=== PATIENT | female | born 1985 | race Caucasian/White ===

== ENCOUNTER 2021-11-29 09:42 | Observation (INO) | payer OTHER ==
[2021-11-29 10:44] VITALS: BP 138/79; PULSE 80
== END 2021-11-29 11:20 | disposition home or self-care (01) ==
LOC: WHC 09:42 → OB 10:16
PROVIDERS: ADMIT Obstetrics & Gynecology; ATTEND Obstetrics & Gynecology
DX: O24.419 Gestational diabetes mellitus in pregnancy, unspecified control (principal); Z3A.32 32 weeks gestation of pregnancy; R82.79 Other abnormal findings on microbiological examination of urine
CPT/HCPCS: 59025; 59426; 81002; 87086; G0378

== ENCOUNTER 2021-12-07 15:03 | Observation (INO) | payer OTHER ==
[2021-12-07 16:32] VITALS: BP 126/59; PULSE 64
== END 2021-12-07 17:20 | disposition home or self-care (01) ==
LOC: WHC 15:03 → OB 15:50
PROVIDERS: ADMIT Obstetrics & Gynecology; ATTEND Obstetrics & Gynecology
DX: O24.419 Gestational diabetes mellitus in pregnancy, unspecified control (principal); Z3A.33 33 weeks gestation of pregnancy
CPT/HCPCS: 59025; 59426; G0378; 81002

== ENCOUNTER 2021-12-14 15:21 | Observation (INO) | payer OTHER ==
[2021-12-14 16:03] VITALS: BP 126/66; PULSE 78; O2SAT 98
== END 2021-12-14 17:15 | disposition home or self-care (01) ==
LOC: OB 15:21
PROVIDERS: ADMIT Obstetrics & Gynecology; ATTEND Obstetrics & Gynecology
DX: O24.419 Gestational diabetes mellitus in pregnancy, unspecified control (principal); Z3A.34 34 weeks gestation of pregnancy
CPT/HCPCS: 59025; G0378

== ENCOUNTER 2021-12-21 15:22 | Observation (INO) | payer OTHER ==
--- NOTE | 2021-12-21 16:28 | XRAY ---
Indication: Gestational diabetes. OB biophysical profile study performed. Comparison: None There is a single intrauterine in cephalic presentation with heart rate 148 BPM. Four-quadrant MONIKA is 8.4 cm, largest pocket 3.3 cm. 2 points given for breathing and amniotic fluid volume. 0 points for movement and tone. Impression: Total biophysical profile score is 4 out of 8.
[2021-12-21 18:45] VITALS: BP 109/58; PULSE 85; O2SAT 99
== END 2021-12-21 18:05 | disposition home or self-care (01) ==
LOC: MED SURG 15:35
PROVIDERS: ADMIT Obstetrics & Gynecology; ATTEND Obstetrics & Gynecology
DX: O24.419 Gestational diabetes mellitus in pregnancy, unspecified control (principal); Z3A.35 35 weeks gestation of pregnancy
CPT/HCPCS: 76818

== ENCOUNTER 2021-12-25 07:00 | Observation (INO) | payer OTHER ==
--- NOTE | 2021-12-25 12:16 | XRAY ---
Indication: Gestational diabetes. Ultrasound biophysical profile study performed. Comparison: December 21, 2021. Again single viable intrauterine with heart rate 155 BPM. Four-quadrant MONIKA is 13.8 cm, largest pocket 6.2 cm. 2 points given for breathing, movements, tone, and amniotic fluid volume. Impression: Total biophysical profile score is 8 out of 8. This was previously 4 out of 8.
[2021-12-25 12:21] VITALS: BP 115/59; PULSE 71
== END 2021-12-25 12:52 | disposition home or self-care (01) ==
LOC: EDSTATUS 11:02 → MED SURG 11:03
PROVIDERS: ADMIT Obstetrics & Gynecology; ATTEND Obstetrics & Gynecology
DX: O24.419 Gestational diabetes mellitus in pregnancy, unspecified control (principal); Z3A.36 36 weeks gestation of pregnancy
CPT/HCPCS: 76818

== ENCOUNTER 2021-12-28 09:46 | Observation (INO) | payer OTHER ==
[2013-08-09 07:27] VITALS: BP 125/98
--- NOTE | 2022-01-15 12:26 | XRAY ---
Indication: Gestational diabetes. Comparison: January 12, 2022. Ultrasound biophysical profile study performed. Again single intrauterine with heart rate 159 bpm. Four-quadrant MONIKA is 10.4 cm, largest pocket 5 cm. 2 points given for breathing, movements, tone, and amniotic fluid volume. Impression: Total biophysical profile score remains 8 out of 8.
[2022-01-15 14:05] LABS: INFLUENZA A NEGATIVE (NEGATIVE); INFLUENZA B NEGATIVE (NEGATIVE); RESPIRATORY SYNCTIAL VIRUS NEGATIVE (Negative); SARS-CoV-2 Xpert Express NEGATIVE (NEGATIVE)
[2022-01-15 14:16] LABS: ABO TYPING O; Antibody Screen NEGATIVE (NEGATIVE); RH TYPING POSITIVE
[2022-01-15 14:26] VITALS: BP 141/76; PULSE 84
== END 2022-01-15 13:30 | disposition home or self-care (01) ==
LOC: EDSTATUS 11:56 → RAD 01-15 11:11 → OB 01-15 11:11
PROVIDERS: ADMIT Obstetrics & Gynecology; ATTEND Obstetrics & Gynecology
DX: O24.419 Gestational diabetes mellitus in pregnancy, unspecified control (principal); Z3A.38 38 weeks gestation of pregnancy
CPT/HCPCS: 0241U; 36415; 59025; 76818; 86850; 86900; 86901; G0378

== ENCOUNTER 2022-01-03 09:31 | Observation (INO) | payer OTHER ==
[2022-01-03 10:46] VITALS: BP 124/64; PULSE 69; O2SAT 96
== END 2022-01-03 11:00 | disposition home or self-care (01) ==
LOC: OB 09:31
PROVIDERS: ADMIT Obstetrics & Gynecology; ATTEND Obstetrics & Gynecology
DX: O24.419 Gestational diabetes mellitus in pregnancy, unspecified control (principal); Z3A.37 37 weeks gestation of pregnancy
CPT/HCPCS: 59025; G0378

== ENCOUNTER 2022-01-08 12:56 | Observation (INO) | payer OTHER ==
--- NOTE | 2022-01-08 13:48 | XRAY ---
Indication: Gestational diabetes. Comparison: January 01, 2022. Ultrasound biophysical profile study performed. Single intrauterine with heart rate 152 BPM. Four-quadrant MONIKA is 15.9 cm, largest pocket 7.8 cm. 2 points given for breathing, movements, tone, and amniotic fluid volume. Impression: Total biophysical profile score remains 8 out of 8.
[2022-01-08 14:17] VITALS: BP 118/63; PULSE 67
== END 2022-01-08 14:10 | disposition home or self-care (01) ==
LOC: UNDOADMOB 12:56 → MED SURG 12:56 → UNDODISOB 14:10
PROVIDERS: ADMIT Obstetrics & Gynecology; ATTEND Obstetrics & Gynecology
DX: O24.419 Gestational diabetes mellitus in pregnancy, unspecified control (principal); Z3A.37 37 weeks gestation of pregnancy
CPT/HCPCS: 59025; 76818; G0378

== ENCOUNTER 2022-01-12 11:38 | Observation (INO) | payer OTHER ==
--- NOTE | 2022-01-12 12:29 | XRAY ---
Indication: Gestational diabetes. Comparison: January 08, 2022. Ultrasound biophysical profile study performed. Again single intrauterine with heart rate 157 BPM. Four-quadrant MONIKA is 17.6 cm, largest pocket 5.6 cm. 2 points given for breathing, movements, tone, and amniotic fluid volume. Impression: Total biophysical profile score remains 8 of 8.
[2022-01-12 12:32] VITALS: BP 143/75; PULSE 68
== END 2022-01-12 13:05 | disposition home or self-care (01) ==
LOC: MED SURG 11:38 → UNDOADMOB 11:38 → UNDODISOB 13:05
PROVIDERS: ADMIT Obstetrics & Gynecology; ATTEND Obstetrics & Gynecology
DX: O24.419 Gestational diabetes mellitus in pregnancy, unspecified control (principal); Z3A.38 38 weeks gestation of pregnancy
CPT/HCPCS: 59025; 76818; G0378

== ENCOUNTER 2022-01-15 10:32 | Inpatient (IN) | payer OTHER ==
[2022-01-16] MEDS ORDERED: TYLENOL EXTRA STRENGTH 500 MG PO PRN (00:28)
[2022-01-16] MEDS ORDERED: STADOL 2 MG IV PRN (00:28)
[2022-01-16] MEDS ORDERED: XYLOCAINE 1% HCL 20 ML MDV IJ PRN (00:28)
[2022-01-16] MEDS ORDERED: Zofran 4 MG/2 ML VIAL IV PRN ×2 (00:28→20:07)
[2022-01-16] MEDS ORDERED: PITOCIN 30 UNITS/ LR 500 ML 30 UNITS/500 ML PLAST..BAG IV SCH (00:30)
[2022-01-16] MEDS ORDERED: OMNIPEN 2 GM*** 2 G in Sodium Chloride 100ML MINI-BAG PLUS 100 ML IV ONE (06:00)
[2022-01-16 06:32] LABS: Absolute Neutrophil Ct (ANC) 12.16 (1.4-6.9); Basophil (Absolute #) 0.02 (0-0.4); Eosinophil % 1.2 % (0.00-5.0); Hematocrit 38.7 % (35-47); Hemoglobin 12.7 gm/dl (12.0-16.0); Lymphocyte (Absolute #) 3.45 (1.0-4.6); Lymphocytes % 20.6 % (24.0-44.0); Mean Cell Volume 85.6 fl (78-100); Mean Corpuscular Hemoglobin 28.1 pg (26-32); Mean Corpuscular Hgb Concent. 32.8 g/dl (32-36); Mean Platelet Volume 11.1 fl (7.5-11.0); Monocyte (Absolute #) 0.92 (0.0-1.3); Monocytes % 5.5 % (0.0-12.0); Neutrophil % 72.6 % (36.0-66.0); Platelet Count 303 K/mm3 (150-450); Red Blood Count 4.52 M/mm3 (4.1-5.4); Red Cell Distribution Width 13.1 % (11.5-14.0); White Blood Count 16.8 K/mm3 (4.0-10.5)
[2022-01-16 08:06] LABS: Amphetamine,Urine NEGATIVE (NEGATIVE); Barbiturate,Urine NEGATIVE (NEGATIVE); Benzodiazepine,Urine NEGATIVE (NEGATIVE); Cocaine,Urine NEGATIVE (NEGATIVE); Methadone,Urine NEGATIVE (NEGATIVE); Opiate,Urine NEGATIVE (NEGATIVE); PCP,Urine NEGATIVE (NEGATIVE); THC,Urine NEGATIVE (NEGATIVE)
[2022-01-16] MEDS: Lactated Ringers 1,000 ML IV SCH ×2 (19:27→22:21)
[2022-01-16] MEDS ORDERED: Pepcid 20 MG VIAL IV SCH (20:00)
[2022-01-16] MEDS ORDERED: CEFAZOLIN 2 GM-D5W BAG** 2 GM/50 ML ML IV SCH (20:00)
[2022-01-16] MEDS ORDERED: SOD CITRATE-CITRIC ACID SOLN PO SCH (20:00)
[2022-01-16] MEDS ORDERED: Reglan 10 MG/2 ML IV SCH (20:00)
[2022-01-16] MEDS ORDERED: MORPHINE SULFATE 2 MG INJ IV PRN (20:07)
[2022-01-16] MEDS ORDERED: HOLD NARCOTIC ANALGESICS AND SEDATIVES X24 HR MC PRN (20:07)
[2022-01-16] MEDS ORDERED: CLARITIN 10 MG PO PRN (20:07)
[2022-01-16] MEDS ORDERED: Nubain 10 MG/ML IV PRN (20:07)
[2022-01-16] MEDS ORDERED: BENADRYL 50 MG/ML IV PRN (20:07)
[2022-01-16] MEDS ORDERED: DEMEROL 50 MG IV PRN (20:07)
[2022-01-16] MEDS ORDERED: Narcan 0.4 MG/ML IV PRN (20:07)
[2022-01-16] MEDS ORDERED: CEFAZOLIN 2 GM-D5W BAG** 2 GM/50 ML ML IV ONE (20:19)
[2022-01-16] MEDS ORDERED: Astramorph-Pf 5 MG/10 ML ONE (20:30)
[2022-01-16] MEDS ORDERED: DIPRIVAN 200 MG/20 ML IV ONE (20:48)
[2022-01-16] MEDS ORDERED: SUBLIMAZE 250 MCG/5 ML ONE (20:48)
[2022-01-16] MEDS ORDERED: Quelicin Fliptop 200 MG/10 ML ONE (20:48)
[2022-01-16 20:49] LABS: INR 0.9 (0.8-3.0); PROTIME 10.6 SECONDS (9.4-12.5)
[2022-01-16 20:51] LABS: PTT 29.1 SECONDS (25.1-36.5)
[2022-01-16] MEDS ORDERED: KEFZOL 1 GM ONE (20:56)
[2022-01-16] MEDS ORDERED: Pitocin 10 UNITS/ML ONE ×2 (20:57→21:10)
[2022-01-16] MEDS ORDERED: Lactated Ringers 1,000 ML IV ONE (21:10)
[2022-01-16] MEDS ORDERED: Marcaine 0.5%/Epinephrine 10 ML ONE (21:22)
[2022-01-16] MEDS ORDERED: BRIDION 200MG/2ML IV ONE (21:27)
[2022-01-16] MEDS ORDERED: Hydromorphone 1 mg/ml Injection ONE (21:59)
[2022-01-16] MEDS ORDERED: TORAdol 30 mg Injection ONE (22:00)
[2022-01-16] MEDS: OMNIPEN 1 GM*** 1 GM in Sodium Chloride 100ML MINI-BAG PLUS 100 ML IV SCH ×2 (22:22→22:23)
[2022-01-16] MEDS: Dextrose 5%-Lr IV Solution 1000 ML 1,000 ML IV SCH (22:44)
[2022-01-16] MEDS: PERCOCET TABLET 5/325MG PO PRN (23:14)
[2022-01-16] MEDS ORDERED: Mylicon 80MG PO PRN (23:55)
[2022-01-16] MEDS ORDERED: LANSINOH 40 GM TOP PRN (23:55)
[2022-01-16] MEDS ORDERED: Dulcolax 10 MG SUPP PR PRN (23:55)
[2022-01-16] MEDS ORDERED: CORTISONE 1% CREAM TP PRN (23:55)
[2022-01-16] MEDS ORDERED: Anucort-HC SUPPOSITORY PR PRN (23:55)
[2022-01-17] MEDS: MOTRIN 400 MG PO PRN ×2 (02:24→22:08)
[2022-01-17] MEDS: PERCOCET TABLET 5/325MG PO PRN (04:03)
[2022-01-17] MEDS: CEFAZOLIN 2 GM-D5W BAG** 2 GM/50 ML ML IV SCH ×2 (05:38→13:06)
[2022-01-17] MEDS: Dextrose 5%-Lr IV Solution 1000 ML 1,000 ML IV SCH ×3 (05:45→20:17)
[2022-01-17 06:17] LABS: Absolute Neutrophil Ct (ANC) 16.66 (1.4-6.9); Basophil (Absolute #) 0.02 (0-0.4); Eosinophil % 0.4 % (0.00-5.0); Eosinophil (Absolute #) 0.09 (0-0.5); Hematocrit 32.1 % (35-47); Hemoglobin 10.5 gm/dl (12.0-16.0); Lymphocyte (Absolute #) 3.05 (1.0-4.6); Lymphocytes % 14.5 % (24.0-44.0); Mean Cell Volume 87.7 fl (78-100); Mean Corpuscular Hemoglobin 28.7 pg (26-32); Mean Corpuscular Hgb Concent. 32.7 g/dl (32-36); Mean Platelet Volume 10.9 fl (7.5-11.0); Monocyte (Absolute #) 1.27 (0.0-1.3); Platelet Count 249 K/mm3 (150-450); Red Blood Count 3.66 M/mm3 (4.1-5.4); Red Cell Distribution Width 13.2 % (11.5-14.0); White Blood Count 21.1 K/mm3 (4.0-10.5)
[2022-01-17] MEDS ORDERED: PHARMACY DOSING REQUIRED: DILAUDID PCA IV ONE (07:00)
--- NOTE | 2022-01-17 07:54 | PCM.NOTE ---
Date and Time: 01/17/22 0751 Subjective Assessment: pod 1 sp csection pt resting in bed and doing well. tolerating diet. vss afebrile abd;soft dressing intact with minimal soiling uterus; firm lochia; mild hgb; 10 a/p sp csection pod 1 doing well anticipate dc tomorrow OBJECTIVE DATA Vital Signs: Vital Signs - 24 hr Temp Pulse Resp BP BP Pulse Ox 01/17/22 02:00 74 18 117/60 96 01/17/22 01:00 80 120/61 96 01/17/22 00:00 80 18 120/61 96 01/16/22 23:45 86 18 140/77 96 01/16/22 23:30 80 18 149/81 98 01/16/22 23:15 73 18 134/76 97 01/16/22 23:00 77 18 143/71 95 01/16/22 22:45 97.7 F 77 18 154/76 96 01/16/22 20:12 97.6 F 80 20 182/87 98 01/16/22 19:00 97.6 F 79 20 138/84 01/16/22 18:00 97.6 F 75 20 130/73 130/75 01/16/22 17:00 97.9 F 80 20 131/79 01/16/22 16:33 97.9 F 20 01/16/22 16:00 97.9 F 98 H 20 124/80 01/16/22 15:21 97.9 F 82 20 143/79 01/16/22 15:00 97.9 F 75 20 136/82 01/16/22 14:45 97.9 F 82 20 143/79 01/16/22 14:30 97.9 F 82 20 143/79 01/16/22 14:00 97.9 F 74 20 137/76 126/75 01/16/22 13:00 97.8 F 80 20 137/76 01/16/22 12:00 97.8 F 81 20 145/74 01/16/22 11:00 97.8 F 80 20 140/88 01/16/22 10:00 97.9 F 82 20 143/79 138/75 01/16/22 09:00 97.8 F 78 20 140/84 01/16/22 08:00 97.8 F 75 20 148/89 94 L Pain Assessment - Last Documented Pain Intensity [Bilateral 3 Lower Anterior] Pain Intensity 2 Pain Scale Used 0-10 Pain Scale Intake and Output: Intake & Output 01/14/22 01/15/22 01/16/22 01/17/22 11:59 11:59 11:59 11:59 Intake Total 900 Output Total 400 Balance 500 Weight 120.656 kg 120.656 kg Lab Results: Lab Results-Last 24 Hours 01/16/22 01/16/22 01/17/22 Range/Units 06:17 20:18 05:20 WBC 21.1 H (4.0-10.5) K/mm3 RBC 3.66 L (4.1-5.4) M/mm3 Hgb 10.5 L (12.0-16.0) gm/dl Hct 32.1 L (35-47) % MCV 87.7 (78-100) fl MCH 28.7 (26-32) pg MCHC 32.7 (32-36) g/dl RDW 13.2 (11.5-14.0) % Plt Count 249 (150-450) K/mm3 MPV 10.9 (7.5-11.0) fl Gran % 79.0 H (36.0-66.0) % Eos # (Auto) 0.09 (0-0.5) Absolute Lymphs (auto) 3.05 (1.0-4.6) Absolute Monos (auto) 1.27 (0.0-1.3) Lymphocytes % 14.5 L (24.0-44.0) % Monocytes % 6.0 (0.0-12.0) % Eosinophils % 0.4 (0.00-5.0) % Basophils % 0.1 (0.0-0.4) % Absolute Granulocytes 16.66 H (1.4-6.9) Basophils # 0.02 (0-0.4) PT 10.6 (9.4-12.5) SECONDS INR 0.90 (0.8-3.0) APTT 29.1 (25.1-36.5) SECONDS POC Glucometer (74 to 106) mg/dL Urine Opiates Level NEGATIVE (NEGATIVE) Ur Methadone NEGATIVE (NEGATIVE) Urine Barbiturates NEGATIVE (NEGATIVE) Ur Phencyclidine (PCP) NEGATIVE (NEGATIVE) Urine Amphetamine NEGATIVE (NEGATIVE) U Benzodiazepine Level NEGATIVE (NEGATIVE) Urine Cocaine NEGATIVE (NEGATIVE) Urine Marijuana (THC) NEGATIVE (NEGATIVE) 01/17/22 Range/Units 06:19 WBC (4.0-10.5) K/mm3 RBC (4.1-5.4) M/mm3 Hgb (12.0-16.0) gm/dl Hct (35-47) % MCV (78-100) fl MCH (26-32) pg MCHC (32-36) g/dl RDW (11.5-14.0) % Plt Count (150-450) K/mm3 MPV (7.5-11.0) fl Gran % (36.0-66.0) % Eos # (Auto) (0-0.5) Absolute Lymphs (auto) (1.0-4.6) Absolute Monos (auto) (0.0-1.3) Lymphocytes % (24.0-44.0) % Monocytes % (0.0-12.0) % Eosinophils % (0.00-5.0) % Basophils % (0.0-0.4) % Absolute Granulocytes (1.4-6.9) Basophils # (0-0.4) PT (9.4-12.5) SECONDS INR (0.8-3.0) APTT (25.1-36.5) SECONDS POC Glucometer 118 H (74 to 106) mg/dL Urine Opiates Level (NEGATIVE) Ur Methadone (NEGATIVE) Urine Barbiturates (NEGATIVE) Ur Phencyclidine (PCP) (NEGATIVE) Urine Amphetamine (NEGATIVE) U Benzodiazepine Level (NEGATIVE) Urine Cocaine (NEGATIVE) Urine Marijuana (THC) (NEGATIVE) Assessment/Plan (1) S/P primary low transverse Current Visit: Yes Status: Acute Code(s): Z98.891 - HISTORY OF UTERINE SCAR FROM PREVIOUS SURGERY (2) Non-reassuring electronic monitoring tracing Current Visit: Yes Status: Acute Code(s): O36.8390 - MATERN CARE FOR ABNLT FETL HRT RATE OR RHYM, UNSP TRI, UNSP
[2022-01-17] MEDS: DILAUDID 1 MG/1ML PCA IV PRN ×2 (08:44→18:59)
[2022-01-17] MEDS: Colace 100 MG PO SCH ×2 (09:12→22:08)
[2022-01-17] MEDS: FERREX 150 PO SCH (09:12)
[2022-01-17] MEDS ORDERED: ENOXAPARIN SODIUM SQ ONE (10:00)
--- NOTE | 2022-01-17 12:58 | OP ---
SURGERY DATE/TIME: 01/16/20222029 PREOPERATIVE DIAGNOSIS: Intrauterine at 39 weeks gestation with non-reassuring heart rate tracing with repetitive late deceleration. POSTOPERATIVE DIAGNOSIS: Intrauterine at 39 weeks gestation with non-reassuring heart rate tracing with repetitive late deceleration. PROCEDURE: Primary section, low flap transverse uterine incision, Pfannenstiel skin incision. SURGEON: Sukhi High D.O. APPLICATIONS ENGINEER MANUFACTURING: Sydney Shelton, air analysis engineering technician. ANESTHESIA: General. ESTIMATED BLOOD LOSS: 500 cc. COMPLICATIONS: None. INDICATIONS: The risks, benefits, indications and alternatives of the procedure were reviewed with the patient prior to procedure. The patient understood the risk of infection, bleeding, bowel injury, bladder injury, ureteral injury, pelvic infection and thromboembolic disorder associated with the surgery however desires to have this surgery as a possible means to alleviate her current medical condition. DESCRIPTION OF PROCEDURE AND FINDINGS: At this point the patient is taken to the operating room where her general anesthesia was found to adequate. She was then prepared and draped in normal sterile fashion in dorsal supine position with a leftward tilt. A Pfannenstiel skin incision is made with a scalpel and carried through to the underlying layer of the fascia with Bovie. The fascia was then incised in the midline and the incision extended laterally with Ellis scissors. The superior aspect of the fascial incision was then grasped Demarco clamps elevated and the underlying rectus muscles dissected off bluntly. Attention is then turned to the inferior aspect of this incision which in similar fashion was grasped, tented up with Demarco clamps and the rectus muscles dissected off bluntly. The rectus muscles were then at the midline and the peritoneum identified, tented up and entered sharply with Metzenbaum scissors. The peritoneal incision was then extended superiorly and inferiorly with good visualization of the bladder. The bladder blade was then inserted and the vesicouterine peritoneum identified, grasped with a pickup and entered sharply with Metzenbaum scissors. This incision was then extended laterally and the bladder flap created digitally. The bladder blade was then reinserted in the lower uterine segment incised in transverse fashion with a scalpel. The uterine incision was then extended laterally with bandage scissors. The bladder blade was then removed. The infant's head was delivered atraumatically. The nose and mouth were suctioned with bulb suction. The cord clamped and cut. The infant was then handed off to awaiting nurses. The placenta was then removed manually. The uterus exteriorized and cleared of all clots and debris. The uterine incision was repaired with 1-0 chromic in a running locked fashion. A second layer of the same suture was used to obtain excellent hemostasis. The uterus is then returned to the abdomen. The gutters were cleared of clots. The peritoneal muscles were closed in interrupted fashion using 2-0 chromic suture. The fascia was re-approximated with 0 Vicryl in running fashion. The subcutaneous layer was closed with 3-0 Vicryl suture and the skin was closed with absorbable hodan called INSORB. The patient tolerated the procedure well. Sponge, lap, needle and instrument counts were correct x2. The patient was then taken to the recovery room in stable condition. The patient delivered a live baby boy at 2100 hours. 's were 4/4/9. The weight of the baby was 7 pounds 3 ounces.
[2022-01-17] MEDS ORDERED: NORCO 5/325 MG PO PRN (22:00)
[2022-01-18] MEDS: Dextrose 5%-Lr IV Solution 1000 ML 1,000 ML IV SCH (00:29)
[2022-01-18] MEDS: MOTRIN 400 MG PO PRN ×2 (04:52→15:12)
[2022-01-18] MEDS: DILAUDID 1 MG/1ML PCA IV PRN (05:05)
[2022-01-18 05:19] VITALS: O2SAT 98
[2022-01-18 05:46] LABS: Hemoglobin 10.4 gm/dl (12.0-16.0); Mean Cell Volume 88.4 fl (78-100); Mean Corpuscular Hemoglobin 28.7 pg (26-32); Mean Corpuscular Hgb Concent. 32.5 g/dl (32-36); Mean Platelet Volume 10.7 fl (7.5-11.0); Platelet Count 267 K/mm3 (150-450); Red Blood Count 3.62 M/mm3 (4.1-5.4); Red Cell Distribution Width 13.4 % (11.5-14.0); White Blood Count 16.1 K/mm3 (4.0-10.5)
--- NOTE | 2022-01-18 08:03 | PCM.NOTE ---
Date and Time: 01/18/22800 Subjective Assessment: pod 2 pt resting in bed and doing well able to ambulate and tolerate diet. vss afebrile abd; soft incision with dressing intact with minimal soiling uterus; firm lochia; mild ext; no clubbing cyanosis or edema hgb; 10.4 a/p sp csection pod 2 dc home today fu office in 2 wks OBJECTIVE DATA Vital Signs: Vital Signs - 24 hr Temp Pulse Resp BP Pulse Ox 01/18/22 05:05 98 01/18/22 04:44 98 01/18/22 02:59 97 01/18/22 02:00 98.2 F 91 H 17 138/82 97 01/18/22 00:44 96 01/17/22 22:59 98 01/17/22 20:44 97 01/17/22 20:00 98.1 F 108 H 18 129/74 97 01/17/22 19:00 98 01/17/22 18:59 98 01/17/22 18:00 98 01/17/22 17:00 98 01/17/22 16:44 96 01/17/22 16:00 97 01/17/22 14:00 95 01/17/22 13:00 96 01/17/22 12:44 97 01/17/22 12:00 99 01/17/22 11:00 95 01/17/22 10:00 96 01/17/22 09:00 97.6 F 79 20 125/76 99 01/17/22 08:44 96 Pain Assessment - Last Documented Pain Intensity [Bilateral 4 Lower Anterior] Pain Intensity 3 Pain Scale Used 0-10 Pain Scale Intake and Output: Intake & Output 01/15/22 01/16/22 01/17/22 01/18/22 11:59 11:59 11:59 11:59 Intake Total 900 2079 Output Total 400 750 Balance 500 1329 Weight 120.656 kg 120.656 kg Lab Results: Lab Results-Last 24 Hours 01/18/22 Range/Units 05:20 WBC 16.1 H (4.0-10.5) K/mm3 RBC 3.62 L (4.1-5.4) M/mm3 Hgb 10.4 L (12.0-16.0) gm/dl Hct 32.0 L (35-47) % MCV 88.4 (78-100) fl MCH 28.7 (26-32) pg MCHC 32.5 (32-36) g/dl RDW 13.4 (11.5-14.0) % Plt Count 267 (150-450) K/mm3 MPV 10.7 (7.5-11.0) fl Assessment/Plan (1) S/P primary low transverse Current Visit: Yes Status: Acute Code(s): Z98.891 - HISTORY OF UTERINE SCAR FROM PREVIOUS SURGERY (2) Non-reassuring electronic monitoring tracing Current Visit: Yes Status: Acute Code(s): O36.8390 - MATERN CARE FOR ABNLT FETL HRT RATE OR RHYM, UNSP TRI, UNSP
--- NOTE | 2022-01-18 08:08 | PCM.DS ---
Discharge Summary Date of Admission: 01/16/22 19:49 Admitting Physician: ALKA CAMPBELL DO Consults: Consults on Case 01/17/22 08:00 Notify Physician ROUTINE Primary Care Provider: ANSON WEBSTER DO Allergies Allergies No Known Drug Allergies Allergy (Verified 01/17/22 20:25) Hospital Summary - Hospital Course Hospital Course: pt admitted on jan 16 for cytotec induction and subsequently noted having recurrent late decelerations for which she underwent primary csection and was done so without complication. during postop period did well able to ambulate and tolerate diet. stable hgb 10.4 and at this time stable for discharge. pt was given norco for pain management and was advised to fu in office in 2 wks. all questions answered to her satisfaction. - Vitals & Intake/Output Vital Signs: Vital Signs Temperature 98.2 F 01/18/22 02:00 Pulse Rate 91 H 01/18/22 02:00 Respiratory Rate 17 01/18/22 02:00 Blood Pressure 138/82 01/18/22 02:00 O2 Sat by Pulse Oximetry 98 01/18/22 05:05 Intake & Output: Intake & Output 01/15/22 01/16/22 01/17/22 01/18/22 11:59 11:59 11:59 11:59 Intake Total 900 2079 Output Total 400 750 Balance 500 1329 Weight 120.656 kg 120.656 kg - Lab Result Diagrams: 01/18/22 05:20 Lab Results-Last 24 Hrs: Lab Results-Last 24 Hours 01/18/22 Range/Units 05:20 WBC 16.1 H (4.0-10.5) K/mm3 RBC 3.62 L (4.1-5.4) M/mm3 Hgb 10.4 L (12.0-16.0) gm/dl Hct 32.0 L (35-47) % MCV 88.4 (78-100) fl MCH 28.7 (26-32) pg MCHC 32.5 (32-36) g/dl RDW 13.4 (11.5-14.0) % Plt Count 267 (150-450) K/mm3 MPV 10.7 (7.5-11.0) fl Final Diagnosis/Problem List - Final Discharge Diagnosis/Problem (1) S/P primary low transverse Current Visit: Yes Status: Acute Code(s): Z98.891 - HISTORY OF UTERINE SCAR FROM PREVIOUS SURGERY (2) Non-reassuring electronic monitoring tracing Current Visit: Yes Status: Acute Code(s): O36.8390 - MATERN CARE FOR ABNLT FETL HRT RATE OR RHYM, UNSP TRI, UNSP - Discharge Disposition: Home, Self-Care Condition: Stable Prescriptions: New Hydrocodone/Acetaminophen [Hydrocodone-Acetamin 5-325 mg] 1 tab PO Q6HPRN PRN #30 tablet MDD 4 PRN Reason: Pain No Action Aspirin 81 gm Chew [Baby Aspirin 81 mg Chew] 81 mg PO DAILY Pnv No.95/Ferrous Fum/Folic AC [ Caplet] 1 tab PO DAILY Metformin HCl 500 mg [Glucophage 500 MG] 1 tab PO DAILY Follow up with: ANSON WEBSTER DO [Primary Care Provider] - ALKA CAMPBELL DO [ACTIVE STAFF] - 2 weeks (keep incision clean and dry with soap and water should fu office in 2 wks)
[2022-01-18] MEDS ORDERED: Adacel Vial IM ONE (10:00)
[2022-01-18] MEDS: Colace 100 MG PO SCH (10:31)
[2022-01-18] MEDS: FERREX 150 PO SCH (10:31)
[2022-01-18 14:08] VITALS: BP 136/81; PULSE 80
== END 2022-01-18 18:50 | disposition home or self-care (01) | DRG 788 ==
LOC: OB 01-16 05:10 → OBSVTOIN 01-16 19:49
PROVIDERS: ADMIT Obstetrics & Gynecology; ATTEND Obstetrics & Gynecology
PROC: 10D00Z1 Extraction of Products of Conception, Low, Open Approach (ICD-10-PCS; principal; 2022-01-16)
DX: O76 Abnormality in fetal heart rate and rhythm complicating labor and delivery (principal); Z3A.39 39 weeks gestation of pregnancy; Z37.0 Single live birth; Z98.891 History of uterine scar from previous surgery; O24.419 Gestational diabetes mellitus in pregnancy, unspecified control; Z20.828 Contact with and (suspected) exposure to other viral communicable diseases
CPT/HCPCS: 36415; 59510; 64488; 76937; 76942; 80307; 82947; 85025; 85027; 85610; 85730; 90471; 90715; G0378; J0330; J0690; J1170; J1650; J1885; J2274; J2590; J2704; J3010; L0625; A9270-GY

== ENCOUNTER 2022-07-13 02:00 | Emergency (ER) | payer OTHER ==
[2022-07-13] MEDS ORDERED: MORPHINE SULFATE 4 MG INJ IV ONE (02:46)
[2022-07-13] MEDS ORDERED: Zofran 4 MG/2 ML VIAL IV ONE (02:46)
[2022-07-13] MEDS ORDERED: Zofran 4 MG/2 ML VIAL ONE (02:51)
[2022-07-13] MEDS ORDERED: MORPHINE SULFATE 4 MG INJ ONE (02:51)
[2022-07-13 03:08] LABS: Basophil (Absolute #) 0.03 x10^3/uL (0-0.4); Eosinophil % 0.9 % (0.00-5.0); Eosinophil (Absolute #) 0.14 x10^3/uL (0-0.5); Hematocrit 37.5 % (35-47); Hemoglobin 12.5 g/dL (12.0-16.0); Lymphocytes % 12.5 % (24.0-44.0); Mean Cell Volume 81.5 fL (78-100); Mean Corpuscular Hemoglobin 27.2 pg (26-32); Mean Corpuscular Hgb Concent. 33.3 g/dL (32-36); Mean Platelet Volume 10.4 fL (7.5-11.0); Neutrophil % 80.7 % (36.0-66.0); Platelet Count 275 x10^3/uL (150-450); Red Cell Distribution Width 13.5 % (11.5-14.0)
--- NOTE | 2022-07-13 03:11 | ERPHSYRPT ---
- History of Present Illness Time Seen by Provider: 07/13/22 02:20 Source: patient Exam Limitations: no limitations Patient Subjective Stated Complaint: abd pain Triage Nursing Assessment: pt ambulated into ER, pt c/o abd pain which began around 9pm. Pt is 13 weeks with twins. Abd lg, obese with active bs x4 quad, tender on palpation. Pt had diarrhea x1 prior to coming in. Pt has some nausea, denies any vomiting or indigestion. Physician History: Patient is a 36-year-old female A0 M0 presents to our ED currently 13 weeks with twins complaining of abdominal cramps. Patient is experiencing severe abdominal cramps that are intermittent. Symptoms started approximately 9 PM this evening. Symptoms have been ongoing. No trauma. No fever. Patient states her abdomen is tender to palpation. Patient experienced 1 bout of diarrhea prior to arrival. Patient is nauseous. No vomiting. P atient denies a history of the same. Symptoms are moderate in intensity. No specific worsening or improving factors. Patient had a ultrasound performed approximately 1 week ago which revealed 2 viable fetuses. Patient denies vaginal discharge. at bedside. They voiced no other complaints or concerns at this time. Patient's PHARMACY INTAKE TECHNICIAN physician is . Timing/Duration: yesterday Severity: moderate Modifying Factors: Improves With: nothing Associated Symptoms: nausea, abdominal pain, other (Diarrhea), No vomiting Allergies/Adverse Reactions: No Known Drug Allergies Allergy (Verified 07/13/22 02:24) Home Medications: Aspirin 81 gm Chew [Baby Aspirin 81 mg Chew] 81 mg PO DAILY 11/29/21 [History] Pnv No.95/Ferrous Fum/Folic AC [ Caplet] 1 tab PO DAILY 12/07/21 [History] Hx Tetanus, Diphtheria Vaccination/Date Given: Yes Hx Influenza Vaccination/Date Given: No Hx Pneumococcal Vaccination/Date Given: No Immunizations Up to Date: Yes Travel Risk - International Travel Have you traveled outside of the country in past 3 weeks: No - Coronavirus Screening Are you exhibiting any of the following symptoms?: No Close contact with a COVID-19 positive Pt in past 14-21 Days: No - Vaccine Status Have you recieved a Covid-19 vaccination: No - Review of Systems Constitutional: No Symptoms, No Fever, No Chills Eyes: No Symptoms Ears, Nose, & Throat: No Symptoms Respiratory: No Symptoms, No Cough, No Dyspnea Cardiac: No Symptoms, No Chest Pain, No Edema, No Syncope Abdominal/Gastrointestinal: No Symptoms, No Abdominal Pain, No Nausea, No Vomiting, No Diarrhea Genitourinary Symptoms: No Symptoms, No Dysuria Musculoskeletal: No Symptoms, No Back Pain, No Neck Pain Skin: No Symptoms, No Rash Neurological: No Symptoms, No Dizziness, No Focal Weakness, No Sensory Changes Psychological: No Symptoms Endocrine: No Symptoms Hematologic/Lymphatic: No Symptoms Immunological/Allergic: No Symptoms All Other Systems: Reviewed and Negative - Past Medical History Pertinent Past Medical History: Yes Neurological History: No Pertinent History ENT History: No Pertinent History Cardiac History: Hypertension Respiratory History: No Pertinent History Endocrine Medical History: No Pertinent History, Other Musculoskeletal History: No Pertinent History GI Medical History: No Pertinent History History: No Pertinent History Psycho-Social History: Anxiety Female Reproductive Disorders: No Pertinent History Other Medical History: "NORMALLY HEALTHY". gestational diabetes - Past Surgical History Past Surgical History: Yes Neuro Surgical History: No Pertinent History Cardiac: No Pertinent History Respiratory: No Pertinent History Gastrointestinal: No Pertinent History Genitourinary: No Pertinent History Musculoskeletal: No Pertinent History Female Surgical History: Section Other Surgical History: TONSILLECTOMY - Social History Smoking Status: Former smoker How long have you smoked: 15 YEARS Exposure to second hand smoke: No Drug Use: none Patient Lives Alone: No - Female History Hx Now: Yes Expected Date of Delivery: 01/13/23 Gestational Age: 13 weeks - Nursing Vital Signs Nursing Vital Signs: Initial Vital Signs Temperature 97.6 F 07/13/22 02:00 Pulse Rate 68 07/13/22 02:00 Respiratory Rate 22 07/13/22 02:00 Blood Pressure 110/67 07/13/22 02:00 O2 Sat by Pulse Oximetry 100 07/13/22 02:00 Pain Scale Pain Intensity 0 - Physical Exam General Appearance: no apparent distress, alert Eye Exam: PERRL/EOMI, eyes nml inspection Ears, Nose, Throat Exam: normal ENT inspection, TMs normal, pharynx normal, moist mucous membranes Neck Exam: normal inspection, non-tender, supple, full range of motion Respiratory Exam: normal breath sounds, lungs clear, airway intact, No respiratory distress Cardiovascular Exam: regular rate/rhythm, normal heart sounds, normal peripheral pulses Gastrointestinal/Abdomen Exam: soft, normal bowel sounds, tenderness, other (Gravid abdomen), No mass Pelvic Exam: not done Back Exam: normal inspection, normal range of motion, No CVA tenderness, No vertebral tenderness Extremity Exam: normal inspection, normal range of motion, pelvis stable Neurologic Exam: alert, oriented x 3, cooperative, normal mood/affect, sensation nml, No motor deficits Skin Exam: normal color, warm, dry, No rash Lymphatic Exam: No adenopathy SpO2 Interpretation: normal SpO2: 100 O2 Delivery: Room Air - Course Nursing assessment & vital signs reviewed: Yes - Radiology Ultrasound Exam OB Ultrasound: discussed w/radiologist (Per [facility] baby a heart rate 150 BBB heart rate 155. Pole present gestational sacs present cardiac cavity present movement present) Ordered Tests: Active Orders 24 hr Category Date Time Status IV Insertion STAT Care 07/13/22 03:02 Active OB <14 WKS 1ST GESTATION [US] Routine Exams 07/13/22 03:00 Ordered OB <14 WKS ADDL GESTATION [US] Stat Exams 07/13/22 02:59 Ordered CBC W DIFF Stat Lab 07/13/22 03:06 Completed CMP Stat Lab 07/13/22 03:06 Completed HCG, Quantitative (Inhouse) Stat Lab 07/13/22 03:06 Completed LIPASE Stat Lab 07/13/22 03:29 Completed TROPONIN Q4H Lab 07/13/22 03:29 Completed TROPONIN Q4H Lab 07/13/22 07:15 Ordered TROPONIN Q4H Lab 07/13/22 11:15 Ordered UA W/RFX CULTURE Stat Lab 07/13/22 03:06 Completed Medication Summary Discontinued Medications Generic Name Dose Route Start Last Admin Trade Name Joseph PRN Reason Stop Dose Admin Morphine Sulfate 4 mg 07/13/22 02:46 07/13/22 02:52 Morphine Sulfate 4 Mg/Ml Injection IV 07/13/22 02:47 4 mg STAT ONE Administration Morphine Sulfate Confirm 07/13/22 02:51 Morphine Sulfate 4 Mg/Ml Injection Administered 07/13/22 02:52 Dose 4 mg .ROUTE .STK-MED ONE Ondansetron HCl 4 mg 07/13/22 02:46 07/13/22 02:52 Ondansetron Hcl 4 Mg/2 Ml Vial IV 07/13/22 02:47 4 mg STAT ONE Administration Ondansetron HCl Confirm 07/13/22 02:51 Ondansetron Hcl 4 Mg/2 Ml Vial Administered 07/13/22 02:52 Dose 4 mg .ROUTE .K-MED ONE Lab/Rad Data: Laboratory Result Diagrams 07/13/22 03:06 07/13/22 03:06 Laboratory Results 07/13/22 07/13/22 07/13/22 Range/Units 03:29 03:29 03:06 WBC (4.0-10.5) x10^3/uL RBC (4.1-5.4) x10^6/uL Hgb (12.0-16.0) g/dL Hct (35-47) % MCV (78-100) fL MCH (26-32) pg MCHC (32-36) g/dL RDW (11.5-14.0) % Plt Count (150-450) x10^3/uL MPV (7.5-11.0) fL Gran % (36.0-66.0) % Immature Gran % (Auto) (0.00-0.4) % Nucleat RBC Rel Count (0.00-0.1) % Eos # (Auto) (0-0.5) x10^3/uL Immature Gran # (Auto) (0.00-0.03) x10^3u/L Absolute Lymphs (auto) (1.0-4.6) x10^3/uL Absolute Monos (auto) (0.0-1.3) x10^3/uL Absolute Nucleated RBC (0.00-0.01) x10^3u/L Lymphocytes % (24.0-44.0) % Monocytes % (0.0-12.0) % Eosinophils % (0.00-5.0) % Basophils % (0.0-0.4) % Absolute Granulocytes (1.4-6.9) x10^3/uL Basophils # (0-0.4) x10^3/uL Sodium (137-145) mmol/L Potassium (3.5-5.1) mmol/L Chloride (98-107) mmol/L Carbon Dioxide (22-30) mmol/L Anion Gap (5-15) MEQ/L BUN (7-17) mg/dL Creatinine (0.52-1.04) mg/dL Estimated GFR ML/MIN Glucose (74-106) mg/dL Calcium (8.4-10.2) mg/dL Total Bilirubin (0.2-1.3) mg/dL AST (14-36) U/L ALT (0-35) U/L Alkaline Phosphatase (38-126) U/L Troponin I < 0.012 (0.000-0.034) ng/mL Serum Total Protein (6.3-8.2) g/dL Albumin (3.5-5.0) g/dL Lipase 52 (23-300) U/L Beta HCG, Quant mIU/ml Urinalys Dipstick Clnc MAIN LAB Urine Color YELLOW (YELLOW) Urine Appearance CLEAR (CLEAR) Urine pH 6.5 (5-6) Ur Specific [place] 1.025 (1.005-1.025) POC Urine Protein Conf NEGATIVE (Negative) Urine Ketones NEGATIVE (NEGATIVE) Urine Nitrite NEGATIVE (NEGATIVE) Urine Bilirubin NEGATIVE (NEGATIVE) Urine Urobilinogen 0.2 (0-1) mg/dL Urine Leukocytes NEGATIVE (NEGATIVE) Urine WBC (Auto) 3-5 (0-5) /HPF Urine RBC (Auto) 0-2 (0-2) /HPF U Epithel Cells (Auto) RARE (FEW) /HPF Urine Bacteria (Auto) NONE SEEN (NEGATIVE) /HPF Urine RBC NEGATIVE (0-5) Darrin/ul Urine Mucus (Auto) SLIGHT (NEGATIVE) /HPF Ur Culture Indicated? NO Urine Glucose NEGATIVE (NEGATIVE) mg/dL 07/13/22 07/13/22 07/13/22 Range/Units 03:06 03:06 03:06 WBC 16.0 H (4.0-10.5) x10^3/uL RBC 4.60 (4.1-5.4) x10^6/uL Hgb 12.5 (12.0-16.0) g/dL Hct 37.5 (35-47) % MCV 81.5 (78-100) fL MCH 27.2 (26-32) pg MCHC 33.3 (32-36) g/dL RDW 13.5 (11.5-14.0) % Plt Count 275 (150-450) x10^3/uL MPV 10.4 (7.5-11.0) fL Gran % 80.7 H (36.0-66.0) % Immature Gran % (Auto) 0.7 H (0.00-0.4) % Nucleat RBC Rel Count 0.0 (0.00-0.1) % Eos # (Auto) 0.14 (0-0.5) x10^3/uL Immature Gran # (Auto) 0.11 H (0.00-0.03) x10^3u/L Absolute Lymphs (auto) 2.00 (1.0-4.6) x10^3/uL Absolute Monos (auto) 0.80 (0.0-1.3) x10^3/uL Absolute Nucleated RBC 0.00 (0.00-0.01) x10^3u/L Lymphocytes % 12.5 L (24.0-44.0) % Monocytes % 5.0 (0.0-12.0) % Eosinophils % 0.9 (0.00-5.0) % Basophils % 0.2 (0.0-0.4) % Absolute Granulocytes 12.90 H (1.4-6.9) x10^3/uL Basophils # 0.03 (0-0.4) x10^3/uL Sodium 133 L (137-145) mmol/L Potassium 3.5 (3.5-5.1) mmol/L Chloride 106 (98-107) mmol/L Carbon Dioxide 18 L (22-30) mmol/L Anion Gap 12.6 (5-15) MEQ/L BUN 8 (7-17) mg/dL Creatinine 0.47 L (0.52-1.04) mg/dL Estimated GFR > 60.0 ML/MIN Glucose 110 H (74-106) mg/dL Calcium 8.4 (8.4-10.2) mg/dL Total Bilirubin 0.30 (0.2-1.3) mg/dL AST 19 (14-36) U/L ALT 15 (0-35) U/L Alkaline Phosphatase 86 (38-126) U/L Troponin I (0.000-0.034) ng/mL Serum Total Protein 6.4 (6.3-8.2) g/dL Albumin 3.4 L (3.5-5.0) g/dL Lipase (23-300) U/L Beta HCG, Quant 68928 mIU/ml Urinalys Dipstick Clnc Urine Color (YELLOW) Urine Appearance (CLEAR) Urine pH (5-6) Ur Specific [place] (1.005-1.025) POC Urine Protein Conf (Negative) Urine Ketones (NEGATIVE) Urine Nitrite (NEGATIVE) Urine Bilirubin (NEGATIVE) Urine Urobilinogen (0-1) mg/dL Urine Leukocytes (NEGATIVE) Urine WBC (Auto) (0-5) /HPF Urine RBC (Auto) (0-2) /HPF U Epithel Cells (Auto) (FEW) /HPF Urine Bacteria (Auto) (NEGATIVE) /HPF Urine RBC (0-5) Darrin/ul Urine Mucus (Auto) (NEGATIVE) /HPF Ur Culture Indicated? Urine Glucose (NEGATIVE) mg/dL - Progress Progress: improved Progress Note: Patient reassessed. She is well. Pain resolved. Patient was observed in our ED for 4 hours. Ultrasound shows 2 live fetuses. Laboratory work-up essentially nonremarkable. UA negative for UTI. Case discussed with patient's PHARMACY INTAKE TECHNICIAN who agrees with discharge home. Portions of this note were created with voice recognition technology. There may be grammatical, spelling, punctuation or sound alike errors 07/13/22 06:16 Discussed with : Herman Counseled pt/family regarding: lab results, diagnosis, rad results - Departure Departure Disposition: Home Clinical Impression: Uterine cramping, Uterine contractions Condition: Stable Critical Care Time: No Referrals: ANSON WEBSTER, [Primary Care Provider] - Follow up/PCP as directed Additional Instructions: Discharge/Care Plan KEMGUSTABO RENITA was seen on 07/13/22 in the Emergency Room. The patient was counseled regarding Diagnosis,Lab results, Imaging studies, need for follow up and when to return to the Emergency Room. Prescriptions given: Discharge Note I have spoken with the patient and/or caregivers. I have explained the patient's condition, diagnosis and treatment plan based on the information available to me at this time. I have answered the patient's and/or caregiver's questions and addressed any concerns. The patient and/or caregivers have as good understanding of the patient's diagnosis, condition and treatment plan as can be expected at t his point. The vital signs have been stable. The patient's condition is stable and appropriate for discharge from the emergency department. The patient will pursue further outpatient evaluation with the primary care physician or other designated or consulting physician as outlined in the discharge instructions. The patient and/or caregivers are agreeable to this plan of care and follow-up instructions have been explained in detail. The patient and/or caregivers have received these instruction. The patient/and or caregivers are aware that any significant change in condition or worsening of symptoms should prompt an immediate return to this or the closest emergency department or call 911.
[2022-07-13 03:13] LABS: Appearance CLEAR (CLEAR); Bilirubin NEGATIVE (NEGATIVE); Epithelial Cells RARE /HPF (FEW); Glucose NEGATIVE (NEGATIVE); Ketones NEGATIVE (NEGATIVE); Mucus SLIGHT /HPF (NEGATIVE); RBC 0-2 /HPF (0-2)
[2022-07-13 03:14] LABS: ALBUMIN 3.4 g/dL (3.5-5.0); ALKALINE PHOSPHATASE 86 U/L (38-126); ANION GAP 12.6 MEQ/L (5-15); BLOOD UREA NITROGEN 8 mg/dL (7-17); Bacteria NONE SEEN /HPF (NEGATIVE); CHLORIDE 106 mmol/L (98-107); Calcium 8.4 mg/dL (8.4-10.2); Carbon Dioxide 18 mmol/L (22-30); Creatinine 1 0.47 mg/dL (0.52-1.04); Dipstick done @ ? MAIN LAB; EST GLOMERULAR FILTRATION RATE > 60.0 ML/MIN; Glucose 110 mg/dL (74-106); Nitrite NEGATIVE (NEGATIVE); Ph 6.5 (5-6); Potassium 3.5 mmol/L (3.5-5.1); Protein,Urine Dip NEGATIVE (Negative); RBC NEGATIVE Ery/ul (0-5); SGOT/AST 19 U/L (14-36); SGPT/ALT 15 U/L (0-35); SODIUM 133 mmol/L (137-145); Specific Gravity 1.025 (1.005-1.025); Total Protein 6.4 g/dL (6.3-8.2); Urine Cultured Indicated? NO; Urobilinogen 0.2 mg/dL (0-1)
[2022-07-13 06:25] VITALS: BP 99/57; PULSE 77; O2SAT 97
--- NOTE | 2022-07-13 09:09 | XRAY ---
Indication: Cramping and bleeding. Pain. Two-dimensional limited early OB ultrasound performed. Comparison: None for this . Twin intrauterine . heart rate twin A is 150 bpm and twin B is 155 bpm. Predominantly posterior placenta without abruption/previa. Comment: Preliminary report was given.
== END 2022-07-13 06:26 | disposition home or self-care (01) ==
LOC: ED 02:00
DX: O62.9 Abnormality of forces of labor, unspecified (principal); O09.521 Supervision of elderly multigravida, first trimester; Z3A.13 13 weeks gestation of pregnancy; R19.7 Diarrhea, unspecified; R11.0 Nausea; I10 Essential (primary) hypertension; Z28.310 Unvaccinated for COVID-19
CPT/HCPCS: 36000; 36415; 76801; 80053; 81015; 83690; 84484; 84702; 85025; 96374; 96375; 99284; J2270; J2405

== ENCOUNTER 2022-12-14 16:18 | Observation (INO) | payer OTHER ==
[2022-12-14 17:53] LABS: Absolute Neutrophil Ct (ANC) 10.82 x10^3/uL (1.4-6.9); Basophil (Absolute #) 0.02 x10^3/uL (0-0.4); Eosinophil (Absolute #) 0.14 x10^3/uL (0-0.5); Hematocrit 37.2 % (35-47); Hemoglobin 12.1 g/dL (12.0-16.0); Lymphocyte (Absolute #) 1.97 x10^3/uL (1.0-4.6); Lymphocytes % 14.4 % (24.0-44.0); Mean Cell Volume 81.4 fL (78-100); Mean Corpuscular Hemoglobin 26.5 pg (26-32); Mean Corpuscular Hgb Concent. 32.5 g/dL (32-36); Mean Platelet Volume 11.1 fL (7.5-11.0); Monocyte (Absolute #) 0.65 x10^3/uL (0.0-1.3); Monocytes % 4.8 % (0.0-12.0); Neutrophil % 79.1 % (36.0-66.0); Platelet Count 237 x10^3/uL (150-450); Red Blood Count 4.57 x10^6/uL (4.1-5.4); Red Cell Distribution Width 14.8 % (11.5-14.0); White Blood Count 13.7 x10^3/uL (4.0-10.5)
[2022-12-14 18:07] LABS: ALBUMIN 3.2 g/dL (3.5-5.0); ALKALINE PHOSPHATASE 156 U/L (38-126); ANION GAP 8.2 MEQ/L (5-15); BLOOD UREA NITROGEN 4 mg/dL (7-17); CHLORIDE 106 mmol/L (98-107); Calcium 8.5 mg/dL (8.4-10.2); Carbon Dioxide 22 mmol/L (22-30); Creatinine 1 0.46 mg/dL (0.52-1.04); EST GLOMERULAR FILTRATION RATE > 60.0 ML/MIN; Glucose 85 mg/dL (74-106); Potassium 3.8 mmol/L (3.5-5.1); SGOT/AST 22 U/L (14-36); SGPT/ALT 14 U/L (0-35); SODIUM 132 mmol/L (137-145); Total Protein 6.2 g/dL (6.3-8.2); Uric Acid 4.5 mg/dL (2.6-6.0)
[2022-12-14 18:24] LABS: Creatinine, Urine Random 72.9 mg/dl; Protein Creatinine Ratio, Ran. 0.15 mg/mg (0.0-0.15)
[2022-12-14 18:48] LABS: Appearance Cloudy (Clear); Bacteria Few /HPF (None Seen); Bilirubin Negative (Negative); Blood Negative (Negative); Glucose, Urine Negative (Negative); Hyaline Casts NONE SEEN /LPF (0-2); Ketones Negative (Negative); Leukocyte Esterase Moderate (Negative); Nitrite Negative (Negative); Ph 7.5 (4.6-8.0); Protein,Urine Dip Negative (Negative); RBC 0-2 /HPF (0-5); Specific Gravity 1.015 (1.005-1.030); Urobilinogen 0.2 mg/dL (0.2)
[2022-12-14 18:50] LABS: ADD URINE CULTURE? NO (NO); Epithelial Cells Moderate /HPF (None Seen)
[2022-12-14 19:57] VITALS: BP 137/67; PULSE 69; O2SAT 97
== END 2022-12-14 20:20 | disposition home or self-care (01) ==
LOC: OB 17:13
PROVIDERS: ADMIT Obstetrics & Gynecology; ATTEND Obstetrics & Gynecology
DX: Z34.83 Encounter for supervision of other normal pregnancy, third trimester (principal); Z3A.35 35 weeks gestation of pregnancy
CPT/HCPCS: 36415; 80053; 81001; 82570; 84156; 84550; 85025; G0378

== ENCOUNTER 2022-12-24 00:33 | Inpatient (IN) | payer OTHER ==
[2022-12-24 05:46] LABS: Hematocrit 36.8 % (35-47); Hemoglobin 11.6 g/dL (12.0-16.0); Mean Cell Volume 83.6 fL (78-100); Mean Corpuscular Hemoglobin 26.4 pg (26-32); Mean Corpuscular Hgb Concent. 31.5 g/dL (32-36); Mean Platelet Volume 11.2 fL (7.5-11.0); Platelet Count 251 x10^3/uL (150-450); Red Cell Distribution Width 14.4 % (11.5-14.0); White Blood Count 12.5 x10^3/uL (4.0-10.5)
[2022-12-24 05:54] LABS: ADD URINE CULTURE? NO (NO); Appearance Clear (Clear); Bacteria None Seen /HPF (None Seen); Bilirubin Negative (Negative); Blood Negative (Negative); Epithelial Cells Rare /HPF (None Seen); Glucose, Urine Negative (Negative); Hyaline Casts NONE SEEN /LPF (0-2); Ketones Negative (Negative); Leukocyte Esterase Trace (Negative); Nitrite Negative (Negative); Ph 6.5 (4.6-8.0); Protein,Urine Dip Trace (Negative); RBC 0-2 /HPF (0-5); Urobilinogen 0.2 mg/dL (0.2)
[2022-12-24 06:00] LABS: INR 0.92 (0.8-3.0); PROTIME 9.8 SECONDS (9.4-12.5); PTT 25.9 SECONDS (25.1-36.5)
[2022-12-24 06:07] LABS: Amphetamine,Urine NEGATIVE (NEGATIVE); Barbiturate,Urine NEGATIVE (NEGATIVE); Benzodiazepine,Urine NEGATIVE (NEGATIVE); Cocaine,Urine NEGATIVE (NEGATIVE); Methadone,Urine NEGATIVE (NEGATIVE); Opiate,Urine NEGATIVE (NEGATIVE); PCP,Urine NEGATIVE (NEGATIVE); THC,Urine NEGATIVE (NEGATIVE)
[2022-12-24 06:33] LABS: ABO TYPING O; Antibody Screen NEGATIVE (NEGATIVE); RH TYPING POSITIVE
[2022-12-24] MEDS ORDERED: Pepcid 20 MG VIAL IV SCH (07:00)
[2022-12-24] MEDS ORDERED: Reglan 10 MG/2 ML IV SCH (07:00)
[2022-12-24] MEDS ORDERED: Lactated Ringers 1,000 ML IV ONE ×2 (07:00→09:44)
[2022-12-24] MEDS ORDERED: Lactated Ringers 1,000 ML IV SCH (07:00)
[2022-12-24] MEDS ORDERED: SOD CITRATE-CITRIC ACID SOLN PO SCH (07:00)
[2022-12-24] MEDS ORDERED: CEFAZOLIN 2 GM-D5W BAG** 2 GM/50 ML ML IV SCH (07:00)
[2022-12-24] MEDS ORDERED: Astramorph-Pf 5 MG/10 ML ONE (07:51)
[2022-12-24] MEDS ORDERED: PHENYLEPHRINE HCL ONE (07:58)
[2022-12-24] MEDS ORDERED: Zofran 4 MG/2 ML VIAL ONE (07:59)
[2022-12-24] MEDS ORDERED: Pitocin 10 UNITS/ML ONE (08:31)
[2022-12-24] MEDS ORDERED: Ephedrine Sulfate 50 MG/ML ONE (08:33)
[2022-12-24] MEDS ORDERED: Decadron 4 MG INJ ONE ×2 (08:43→08:52)
[2022-12-24] MEDS ORDERED: Marcaine 0.5%/Epinephrine 10 ML ONE (08:43)
[2022-12-24] MEDS ORDERED: DEXMEDETOMIDINE 80 MCG/20ML-NS IV ONE (08:43)
[2022-12-24] MEDS ORDERED: TORAdol 30 mg Injection ONE (08:52)
[2022-12-24] MEDS ORDERED: BENADRYL 50 MG/ML IV PRN (09:00)
[2022-12-24] MEDS ORDERED: Narcan 0.4 MG/ML IV PRN (09:00)
[2022-12-24] MEDS ORDERED: CLARITIN 10 MG PO PRN (09:00)
[2022-12-24] MEDS ORDERED: MORPHINE SULFATE 2 MG INJ IV PRN (09:00)
[2022-12-24] MEDS ORDERED: HOLD NARCOTIC ANALGESICS AND SEDATIVES X24 HR MC PRN (09:00)
[2022-12-24] MEDS ORDERED: Nubain 10 MG/ML IV PRN (09:00)
[2022-12-24] MEDS ORDERED: DEMEROL 50 MG IV PRN (09:00)
[2022-12-24] MEDS ORDERED: LANSINOH 40 GM TOP PRN (10:00)
[2022-12-24] MEDS ORDERED: Mylicon 80MG PO PRN (10:00)
[2022-12-24] MEDS ORDERED: TUCKS TP PRN (10:00)
[2022-12-24] MEDS ORDERED: Dextrose 5%-Lr IV Solution 1000 ML 1,000 ML IV SCH (10:00)
[2022-12-24] MEDS ORDERED: CORTISONE 1% CREAM TP PRN (10:00)
[2022-12-24 11:19] LABS: Appearance Clear (Clear); Bacteria None Seen /HPF (None Seen); Bilirubin Negative (Negative); Blood Negative (Negative); Epithelial Cells Rare /HPF (None Seen); Glucose, Urine Negative (Negative); Hyaline Casts NONE SEEN /LPF (0-2); Ketones 15 (Negative); Leukocyte Esterase Negative (Negative); Nitrite Negative (Negative); Ph 6.5 (4.6-8.0); Protein,Urine Dip Trace (Negative); RBC 0-2 /HPF (0-5); Specific Gravity 1.025 (1.005-1.030); Urobilinogen 0.2 mg/dL (0.2)
[2022-12-24] MEDS: KEFZOL 1 GM** 3 G in Sodium Chloride 0.9% 50 ML 50 ML IV SCH (19:06)
[2022-12-24] MEDS: PERCOCET TABLET 5/325MG PO PRN (21:36)
[2022-12-25] MEDS: KEFZOL 1 GM** 3 G in Sodium Chloride 0.9% 50 ML 50 ML IV SCH (01:58)
[2022-12-25 04:44] LABS: Absolute Neutrophil Ct (ANC) 17.13 x10^3/uL (1.4-6.9); BASOPHIL % 0.2 % (0.0-0.4); Basophil (Absolute #) 0.04 x10^3/uL (0-0.4); Eosinophil (Absolute #) 0.01 x10^3/uL (0-0.5); Hematocrit 31.5 % (35-47); Hemoglobin 10.2 g/dL (12.0-16.0); IMMATURE GRAN # 0.15 x10^3u/L (0.00-0.03); IMMATURE GRAN % 0.7 % (0.00-0.4); Lymphocyte (Absolute #) 1.56 x10^3/uL (1.0-4.6); Lymphocytes % 7.7 % (24.0-44.0); Mean Cell Volume 81.2 fL (78-100); Mean Corpuscular Hemoglobin 26.3 pg (26-32); Mean Corpuscular Hgb Concent. 32.4 g/dL (32-36); Monocyte (Absolute #) 1.34 x10^3/uL (0.0-1.3); Monocytes % 6.6 % (0.0-12.0); Neutrophil % 84.8 % (36.0-66.0); Platelet Count 243 x10^3/uL (150-450); Red Blood Count 3.88 x10^6/uL (4.1-5.4); Red Cell Distribution Width 14.5 % (11.5-14.0); White Blood Count 20.2 x10^3/uL (4.0-10.5)
[2022-12-25] MEDS: PERCOCET TABLET 5/325MG PO PRN (05:05)
[2022-12-25] MEDS ORDERED: ENOXAPARIN SODIUM SQ ONE (09:00)
[2022-12-25 09:12] LABS: RPR Non Reactive (Non Reactive)
[2022-12-25 09:13] LABS: HBsAg Screen Negative (Negative)
[2022-12-25] MEDS: NORCO 5/325 MG PO PRN ×2 (09:34→20:42)
[2022-12-25] MEDS: FERREX 150 PO SCH (09:34)
[2022-12-25] MEDS: Docusate Sodium 100 MG PO SCH ×2 (09:34→21:48)
[2022-12-25] MEDS ORDERED: Adacel Vial IM ONE (10:00)
[2022-12-25] MEDS: ZOLOFT 50 MG TABLET PO SCH (10:34)
--- NOTE | 2022-12-25 11:17 | OP ---
SURGERY DATE/TIME: 12/24/2022 0808 PREOPERATIVE DIAGNOSIS: Intrauterine at 37 weeks and 1 day gestation with gestational hypertension, twin gestation, desiring tubal sterilization with history of previous section for repeat section. POSTOPERATIVE DIAGNOSIS: Intrauterine at 37 weeks and 1 day gestation with gestational hypertension, twin gestation, desiring tubal sterilization with history of previous section for repeat section. PROCEDURES: 1) Repeat section, low flap transverse uterine incision, Pfannenstiel skin incision. 2) Bilateral tubal sterilization. SURGEON: Sukhi High D.O. PRESIDENT ERGONOMIC CONSULTING: Diamond Nava, surgical resident. ANESTHESIA: Spinal. ESTIMATED BLOOD LOSS: 740 cc. COMPLICATIONS: None. INDICATIONS: The risks, benefits, indications and alternatives of the procedure were reviewed with the patient prior to procedure. The patient understood the risk of infection, bleeding, bowel injury, bladder injury, ureteral injury, pelvic infection, thromboembolic disorder, possible future and ectopic that may be associated with this procedure however desires to have this procedure as a possible means to alleviate her current medical condition. DESCRIPTION OF PROCEDURE AND FINDINGS: At this point the patient is taken to the operating room where her spinal anesthesia was found to adequate. She was then prepared and draped in normal sterile fashion in the dorsal supine position with leftward tilt. A Pfannenstiel skin incision is made with a scalpel and carried through to the underlying layer of the fascia with a Bovie. The fascia was then incised in the midline and the incision extended laterally with Ellis scissors. The superior aspect of the fascial incision was then grasped Demarco clamps elevated and the underlying rectus muscles dissected off bluntly. Attention is then turned to the inferior aspect of this incision which in similar fashion was grasped, tented up with Demarco clamps and the rectus muscles dissected off bluntly. The rectus muscles were then in the midline and the peritoneum identified, tented up and entered sharply with Metzenbaum scissors. The peritoneal incision was then extended superiorly and inferiorly with good visualization of the bladder. The bladder blade was then inserted and the vesicouterine peritoneum identified, grasped with pickups and entered sharply with Metzenbaum scissors. This incision was then extended laterally and bladder flap created digitally. The bladder blade was then reinserted in the lower uterine segment and excised in transverse fashion with a scalpel. The uterine incision was then extended laterally with bandage scissors. The bladder blade was then removed and Twin A was delivered and was noted to be in breech presentation where lower extremities were delivered first followed by the trunk and finally the head. The baby was handed off to awaiting nurses. Twin B was delivered also in a breech presentation where the legs were retrieved followed by the trunk and finally the head. Again, the infant was handed off to the awaiting nurses. Placenta was then removed manually. The uterus exteriorized and cleared of all clots and debris. The uterine incision was repaired with 1-0 chromic in running locked fashion. A second layer of the same suture was used to obtain excellent hemostasis. From this point a Alfonso clamp was then used to grasp the fallopian tube approximately 4 cm from the cornual region. From this point, a 3 cm segment of the tube was then ligated with free tie of plain gut and excised. Good hemostasis was assured. The same procedure was performed on the right tube where the Alfonso clamp was placed approximately 4 cm from the cornual region and a 3 cm segment of the tube was then ligated with free tie of plain gut and excised. Good hemostasis again was noted. From this point, the gutters were cleared of all clots and the uterus is then returned to the abdomen. From this point the peritoneum was closed in interrupted fashion using 2-0 chromic suture and the fascia was re-approximated with 0 Vicryl in a running fashion. The subcutaneous layer was closed with 3-0 Vicryl suture and the skin was closed with absorbable hodan called INSORB. The patient tolerated the procedure well. Sponge, lap, needle and instrument counts were correct x2. The patient was then taken to the recovery room in stable condition. The patient delivered Twin A at 0839 hours, 's were 7 at 1 minute and 9 at 5 minutes and the weight of the baby was 6 pounds 13 ounces and was a baby girl. Twin B was delivered at 0840 hours, 's were 8 at 1 minute and 9 at 5 minutes, and the weight of the baby was 6 pounds 4 ounces and it too was a girl.
[2022-12-25] MEDS: MOTRIN 400 MG PO PRN ×2 (11:30→18:37)
--- NOTE | 2022-12-25 12:37 | PCM.NOTE ---
Date and Time: 12/25/22 1231 Subjective Assessment: pod 1 sp csection with tubal sterilization pt resting in bed and doing well. able to ambulate and tolerate diet vss afebrile abd; soft dressing intact with no soiling noted uterus; firm lochia; mild hgb; 10 a/p sp csection with tubal sterilization for gestational htn cpm anticipate discharge tomorrow will repeat cbc tomorrow Objective Exam Wound Assessment: Skin/Wound Assessment Wound/Incision Assessment Start: 12/24/22 21:22 Text: Status: Active Freq: Q6H Protocol: Document 12/25/22 09:00 VS (Rec: 12/25/22 11:43 VS [id number]) Wound/Incision Assessment Lower Anterior Abdomen Wound Assessment Shift Assessment Wound Type Incision Dressing Status Dry & Intact Drainage Amount Minimal Drainage Description Serosanguineous Drainage Odor None/Absent Wound Photo Photo Taken No OBJECTIVE DATA Vital Signs: Vital Signs - 24 hr Temp Pulse Resp BP Pulse Ox 12/25/22 09:00 98 12/25/22 08:00 98.4 F 70 18 143/79 98 12/25/22 07:00 95 12/25/22 06:00 97.7 F 54 L 20 175/84 98 12/25/22 05:00 98 12/25/22 03:00 86 99 12/25/22 02:23 99 12/25/22 02:00 99 12/25/22 01:00 99 12/25/22 00:00 98.5 F 93 H 20 137/82 97 12/24/22 23:00 99 12/24/22 22:00 98 12/24/22 21:00 99 12/24/22 20:00 97 12/24/22 18:59 97 12/24/22 17:34 97.6 F 78 18 141/87 96 12/24/22 17:00 96 12/24/22 15:00 98 12/24/22 14:00 67 17 141/87 97 12/24/22 13:00 96 Pain Assessment - Last Documented Pain Intensity [Lower Anterior 3 Lateral] Pain Intensity 7 Pain Scale Used 0-10 Pain Scale Intake and Output: Intake & Output 12/23/22 12/24/22 12/25/22 12/26/22 11:59 11:59 11:59 11:59 Intake Total 5800 Output Total 3500 Balance 2300 Weight 137.438 kg Lab Results: Lab Results-Last 24 Hours 12/24/22 12/25/22 Range/Units 05:38 04:44 WBC 20.2 H (4.0-10.5) x10^3/uL RBC 3.88 L (4.1-5.4) x10^6/uL Hgb 10.2 L (12.0-16.0) g/dL Hct 31.5 L (35-47) % MCV 81.2 (78-100) fL MCH 26.3 (26-32) pg MCHC 32.4 (32-36) g/dL RDW 14.5 H (11.5-14.0) % Plt Count 243 (150-450) x10^3/uL MPV 11.0 (7.5-11.0) fL Gran % 84.8 H (36.0-66.0) % Immature Gran % (Auto) 0.7 H (0.00-0.4) % Nucleat RBC Rel Count 0.0 (0.00-0.1) % Eos # (Auto) 0.01 (0-0.5) x10^3/uL Immature Gran # (Auto) 0.15 H (0.00-0.03) x10^3u/L Absolute Lymphs (auto) 1.56 (1.0-4.6) x10^3/uL Absolute Monos (auto) 1.34 H (0.0-1.3) x10^3/uL Absolute Nucleated RBC 0.00 (0.00-0.01) x10^3u/L Lymphocytes % 7.7 L (24.0-44.0) % Monocytes % 6.6 (0.0-12.0) % Eosinophils % 0.0 (0.00-5.0) % Basophils % 0.2 (0.0-0.4) % Absolute Granulocytes 17.13 H (1.4-6.9) x10^3/uL Basophils # 0.04 (0-0.4) x10^3/uL RPR Non Reactive (Non Reactive) Hep Bs Antigen Negative (Negative) Assessment/Plan (1) Status post repeat low transverse section Current Visit: Yes Status: Acute Code(s): Z98.891 - HISTORY OF UTERINE SCAR FROM PREVIOUS SURGERY (2) Gestational [-induced] hypertension without significant proteinuria, complicating childbirth Current Visit: Yes Status: Acute Code(s): O13.4 - GESTATNL HTN WITHOUT SIGNIFICANT PROTEIN, COMP CHILDBIRTH (3) Sterilization Current Visit: Yes Status: Acute Code(s): Z30.2 - ENCOUNTER FOR STERILIZATION
[2022-12-25] MEDS: HYDROCODONE-ACETAMIN 10-325 MG PO PRN (15:16)
[2022-12-26] MEDS: NORCO 5/325 MG PO PRN ×2 (04:36→20:01)
[2022-12-26 05:21] LABS: Absolute Neutrophil Ct (ANC) 9.24 x10^3/uL (1.4-6.9); BASOPHIL % 0.4 % (0.0-0.4); Basophil (Absolute #) 0.05 x10^3/uL (0-0.4); Eosinophil % 1.1 % (0.00-5.0); Eosinophil (Absolute #) 0.15 x10^3/uL (0-0.5); Hematocrit 33.4 % (35-47); Hemoglobin 10.7 g/dL (12.0-16.0); IMMATURE GRAN % 0.7 % (0.00-0.4); Lymphocyte (Absolute #) 3.41 x10^3/uL (1.0-4.6); Lymphocytes % 24.9 % (24.0-44.0); Mean Cell Volume 82.3 fL (78-100); Mean Corpuscular Hemoglobin 26.4 pg (26-32); Monocyte (Absolute #) 0.75 x10^3/uL (0.0-1.3); Monocytes % 5.5 % (0.0-12.0); Neutrophil % 67.4 % (36.0-66.0); Platelet Count 260 x10^3/uL (150-450); Red Blood Count 4.06 x10^6/uL (4.1-5.4); Red Cell Distribution Width 14.6 % (11.5-14.0); White Blood Count 13.7 x10^3/uL (4.0-10.5)
--- NOTE | 2022-12-26 06:14 | PCM.NOTE ---
Date and Time: 12/26/22611 Subjective Assessment: pod 2 sp csection pt resting in bed and doing well ambulating and tolerating diet vss afebrile abd; incision with dressing intact with minimal soiling uterus; firm lochia; mild a/p sp csection with tubal sterilization pod 2 dc home today fu office next saturday Objective Exam Wound Assessment: Skin/Wound Assessment Wound/Incision Assessment Start: 12/24/22 21:22 Text: Status: Active Freq: Q6H Protocol: Document 12/26/22 03:00 (Rec: 12/26/22 03:20 [id number]) Wound/Incision Assessment Lower Anterior Abdomen Wound Assessment Shift Assessment Wound Type Incision Dressing Status Dry & Intact Drainage Amount None Drainage Odor None/Absent Primary Dressing foam Wound Photo Photo Taken No OBJECTIVE DATA Vital Signs: Vital Signs - 24 hr Temp Pulse Resp BP Pulse Ox 12/26/22 04:00 97.6 F 61 20 147/70 100 12/25/22 20:00 98 F 75 18 145/65 97 12/25/22 16:00 98.4 F 75 18 152/71 99 12/25/22 12:00 98.4 F 75 18 152/71 99 12/25/22 09:00 98 12/25/22 08:00 98.4 F 70 18 143/79 98 12/25/22 07:00 95 Pain Assessment - Last Documented Pain Intensity [Lower Anterior 7 Lateral] Pain Intensity 7 Pain Scale Used 0-10 Pain Scale Intake and Output: Intake & Output 12/23/22 12/24/22 12/25/22 12/26/22 11:59 11:59 11:59 11:59 Intake Total 5800 Output Total 3500 Balance 2300 Weight 137.438 kg Lab Results: Lab Results-Last 24 Hours 12/24/22 12/26/22 Range/Units 05:38 04:41 WBC 13.7 H (4.0-10.5) x10^3/uL RBC 4.06 L (4.1-5.4) x10^6/uL Hgb 10.7 L (12.0-16.0) g/dL Hct 33.4 L (35-47) % MCV 82.3 (78-100) fL MCH 26.4 (26-32) pg MCHC 32.0 (32-36) g/dL RDW 14.6 H (11.5-14.0) % Plt Count 260 (150-450) x10^3/uL MPV 11.0 (7.5-11.0) fL Gran % 67.4 H (36.0-66.0) % Immature Gran % (Auto) 0.7 H (0.00-0.4) % Nucleat RBC Rel Count 0.0 (0.00-0.1) % Eos # (Auto) 0.15 (0-0.5) x10^3/uL Immature Gran # (Auto) 0.10 H (0.00-0.03) x10^3u/L Absolute Lymphs (auto) 3.41 (1.0-4.6) x10^3/uL Absolute Monos (auto) 0.75 (0.0-1.3) x10^3/uL Absolute Nucleated RBC 0.00 (0.00-0.01) x10^3u/L Lymphocytes % 24.9 (24.0-44.0) % Monocytes % 5.5 (0.0-12.0) % Eosinophils % 1.1 (0.00-5.0) % Basophils % 0.4 (0.0-0.4) % Absolute Granulocytes 9.24 H (1.4-6.9) x10^3/uL Basophils # 0.05 (0-0.4) x10^3/uL RPR Non Reactive (Non Reactive) Hep Bs Antigen Negative (Negative) Assessment/Plan (1) Status post repeat low transverse section Current Visit: Yes Status: Acute Code(s): Z98.891 - HISTORY OF UTERINE SCAR FROM PREVIOUS SURGERY (2) Gestational [-induced] hypertension without significant proteinuria, complicating childbirth Current Visit: Yes Status: Acute Code(s): O13.4 - GESTATNL HTN WITHOUT SIGNIFICANT PROTEIN, COMP CHILDBIRTH (3) Sterilization Current Visit: Yes Status: Acute Code(s): Z30.2 - ENCOUNTER FOR STERILIZATION
--- NOTE | 2022-12-26 06:19 | PCM.DS ---
Discharge Summary Date of Admission: 12/24/22 04:59 Admitting Physician: ALKA CAMPBELL DO Consults: Consults on Case 12/24/22 06:00 Notify Anesthesia Provider ROUTINE 12/24/22 08:35 Navigation ONCE 12/24/22 09:00 Notify Anesthesia Provider PRN Primary Care Provider: ANSON WEBSTER DO Allergies Allergies No Known Drug Allergies Allergy (Verified 12/24/22 05:41) Hospital Summary - Hospital Course Hospital Course: pt was admitted on dec 24 being at 37 1/7 wks twin gestation with gestational htn for repeat csection where csection was performed with tubal sterilzation without complication. during postop period pt was noted having stable hgb at 10 and incision appeared clean and dry. pt delivered live twin girls without complication. pt was noted having labile bp however mostly normal. pt able to ambulate and tolerate diet and at this time stable for discharge with fu next saturday in office. all questions answered to her satisfaction. - Vitals & Intake/Output Vital Signs: Vital Signs Temperature 97.6 F 12/26/22 04:00 Pulse Rate 61 12/26/22 04:00 Respiratory Rate 20 12/26/22 04:00 Blood Pressure 147/70 12/26/22 04:00 O2 Sat by Pulse Oximetry 100 12/26/22 04:00 Intake & Output: Intake & Output 12/23/22 12/24/22 12/25/22 12/26/22 11:59 11:59 11:59 11:59 Intake Total 5800 Output Total 3500 Balance 2300 Weight 137.438 kg - Lab Result Diagrams: 12/26/22 04:41 Lab Results-Last 24 Hrs: Lab Results-Last 24 Hours 12/24/22 12/26/22 Range/Units 05:38 04:41 WBC 13.7 H (4.0-10.5) x10^3/uL RBC 4.06 L (4.1-5.4) x10^6/uL Hgb 10.7 L (12.0-16.0) g/dL Hct 33.4 L (35-47) % MCV 82.3 (78-100) fL MCH 26.4 (26-32) pg MCHC 32.0 (32-36) g/dL RDW 14.6 H (11.5-14.0) % Plt Count 260 (150-450) x10^3/uL MPV 11.0 (7.5-11.0) fL Gran % 67.4 H (36.0-66.0) % Immature Gran % (Auto) 0.7 H (0.00-0.4) % Nucleat RBC Rel Count 0.0 (0.00-0.1) % Eos # (Auto) 0.15 (0-0.5) x10^3/uL Immature Gran # (Auto) 0.10 H (0.00-0.03) x10^3u/L Absolute Lymphs (auto) 3.41 (1.0-4.6) x10^3/uL Absolute Monos (auto) 0.75 (0.0-1.3) x10^3/uL Absolute Nucleated RBC 0.00 (0.00-0.01) x10^3u/L Lymphocytes % 24.9 (24.0-44.0) % Monocytes % 5.5 (0.0-12.0) % Eosinophils % 1.1 (0.00-5.0) % Basophils % 0.4 (0.0-0.4) % Absolute Granulocytes 9.24 H (1.4-6.9) x10^3/uL Basophils # 0.05 (0-0.4) x10^3/uL RPR Non Reactive (Non Reactive) Hep Bs Antigen Negative (Negative) Micro Results-Entire Visit: Microbiology 12/24/22 09:42 Urine Culture - Preliminary Catherized NO GROWTH TO DATE Discharge Exam Wound Assessment: Skin/Wound Assessment Wound/Incision Assessment Start: 12/24/22 21:22 Text: Status: Active Freq: Q6H Protocol: Document 12/26/22 03:00 (Rec: 12/26/22 03:20 [id number]) Wound/Incision Assessment Lower Anterior Abdomen Wound Assessment Shift Assessment Wound Type Incision Dressing Status Dry & Intact Drainage Amount None Drainage Odor None/Absent Primary Dressing foam Wound Photo Photo Taken No Final Diagnosis/Problem List - Final Discharge Diagnosis/Problem (1) Status post repeat low transverse section Current Visit: Yes Status: Acute Code(s): Z98.891 - HISTORY OF UTERINE SCAR FROM PREVIOUS SURGERY (2) Gestational [-induced] hypertension without significant proteinuria, complicating childbirth Current Visit: Yes Status: Acute Code(s): O13.4 - GESTATNL HTN WITHOUT SIGNIFICANT PROTEIN, COMP CHILDBIRTH (3) Sterilization Current Visit: Yes Status: Acute Code(s): Z30.2 - ENCOUNTER FOR STERILIZAT ION - Discharge Disposition: Home, Self-Care Condition: Stable Prescriptions: New Hydrocodone/Acetaminophen [Hydrocodone-Acetamin 5-325 mg] 1 tab PO Q6HPRN PRN #30 tablet MDD 4 PRN Reason: Pain No Action Aspirin 81 gm Chew [Baby Aspirin 81 mg Chew] 81 mg PO DAILY Pnv No.95/Ferrous Fum/Folic AC [ Caplet] 1 tab PO DAILY Sertraline HCl 50 mg [Zoloft 50 mg Tablet] 50 mg PO DAILY Follow up with: ANSON WEBSTER DO [Primary Care Provider] - ALKA CAMPBELL DO [ACTIVE STAFF] - 1 Week (should fu next saturday for inision c kelsie)
--- NOTE | 2022-12-26 08:00 | PCM.DCORD ---
- Discharge Disposition: Home, Self-Care Condition: Stable Prescriptions: New Hydrocodone/Acetaminophen [Hydrocodone-Acetamin 5-325 mg] 1 tab PO Q6HPRN PRN #30 tablet MDD 4 PRN Reason: Pain No Action Aspirin 81 gm Chew [Baby Aspirin 81 mg Chew] 81 mg PO DAILY Pnv No.95/Ferrous Fum/Folic AC [ Caplet] 1 tab PO DAILY Sertraline HCl 50 mg [Zoloft 50 mg Tablet] 50 mg PO DAILY Follow up with: ANSON WEBSTER DO [Primary Care Provider] - ALKA CAMPBELL DO [ACTIVE STAFF] - 1 Week (should fu next saturday for inision check)
[2022-12-26] MEDS: Docusate Sodium 100 MG PO SCH ×2 (10:57→21:28)
[2022-12-26] MEDS: FERREX 150 PO SCH (10:57)
[2022-12-26] MEDS: ZOLOFT 50 MG TABLET PO SCH (10:57)
[2022-12-26] MEDS: HYDROCODONE-ACETAMIN 10-325 MG PO PRN (13:50)
[2022-12-26] MEDS ORDERED: Trandate 100 MG PO ONE (16:42)
[2022-12-26] MEDS: MOTRIN 400 MG PO PRN (21:28)
[2022-12-27] MEDS: NORCO 5/325 MG PO PRN ×2 (00:07→06:00)
[2022-12-27 02:29] VITALS: O2SAT 97
[2022-12-27] MEDS: MOTRIN 400 MG PO PRN (03:19)
[2022-12-27] MEDS ORDERED: LASIX 20 MG PO ONE (06:26)
[2022-12-27 06:55] VITALS: BP 125/60; PULSE 58
== END 2022-12-27 09:51 | disposition home or self-care (01) | DRG 785 ==
LOC: OB 04:59
PROVIDERS: ADMIT Obstetrics & Gynecology; ATTEND Obstetrics & Gynecology
PROC: 10D00Z1 Extraction of Products of Conception, Low, Open Approach (ICD-10-PCS; principal; 2022-12-24)
PROC: 0UT70ZZ Resection of Bilateral Fallopian Tubes, Open Approach (ICD-10-PCS; 2022-12-24)
DX: O13.4 Gestational [pregnancy-induced] hypertension without significant proteinuria, complicating childbirth (principal); Z3A.37 37 weeks gestation of pregnancy; Z20.828 Contact with and (suspected) exposure to other viral communicable diseases; Z37.2 Twins, both liveborn; Z30.2 Encounter for sterilization
CPT/HCPCS: 36415; 58611; 59510; 64488; 76937; 76942; 80307; 81001; 85025; 85027; 85610; 85730; 86592; 86850; 86900; 86901; 87086; 87340; J0690; J1100; J1200; J1650; J1885; J2274; J2370; J2405; J2590; L0625; A9270-GY

== ENCOUNTER 2023-03-06 10:13 | Emergency (ER) | payer OTHER ==
[2023-03-06] MEDS ORDERED: Sodium Chloride 0.9% 1000 ML 1,000 ML IV SCH (11:00)
[2023-03-06 11:17] LABS: Absolute Neutrophil Ct (ANC) 5.54 x10^3/uL (1.4-6.9); BASOPHIL % 0.4 % (0.0-0.4); Basophil (Absolute #) 0.03 x10^3/uL (0-0.4); Eosinophil % 2.2 % (0.00-5.0); Eosinophil (Absolute #) 0.18 x10^3/uL (0-0.5); Hematocrit 37.3 % (35-47); IMMATURE GRAN # 0.02 x10^3u/L (0.00-0.03); IMMATURE GRAN % 0.2 % (0.00-0.4); Lymphocyte (Absolute #) 1.74 x10^3/uL (1.0-4.6); Lymphocytes % 21.3 % (24.0-44.0); Mean Cell Volume 81.4 fL (78-100); Mean Corpuscular Hemoglobin 26.2 pg (26-32); Mean Corpuscular Hgb Concent. 32.2 g/dL (32-36); Mean Platelet Volume 9.6 fL (7.5-11.0); Monocyte (Absolute #) 0.65 x10^3/uL (0.0-1.3); Neutrophil % 67.9 % (36.0-66.0); Platelet Count 324 x10^3/uL (150-450); Red Blood Count 4.58 x10^6/uL (4.1-5.4); Red Cell Distribution Width 12.6 % (11.5-14.0); White Blood Count 8.2 x10^3/uL (4.0-10.5)
[2023-03-06 11:17] LABS: HCG URINE TEST NEGATIVE (NEGATIVE)
[2023-03-06 11:31] LABS: Appearance Turbid (Clear); Bacteria Many /HPF (None Seen); Bilirubin Small (Negative); Blood Moderate (Negative); Epithelial Cells Many /HPF (None Seen); Glucose, Urine Negative (Negative); Ketones Trace (Negative); Leukocyte Esterase Moderate (Negative); Nitrite Negative (Negative); Ph 5.5 (4.6-8.0); Protein,Urine Dip Trace (Negative); Specific Gravity 1.025 (1.005-1.030); WBC 51-100 /HPF (0-5)
[2023-03-06 11:32] LABS: ADD URINE CULTURE? YES (NO)
[2023-03-06 11:32] LABS: ALKALINE PHOSPHATASE 135 U/L (38-126); ANION GAP 13.3 MEQ/L (5-15); BLOOD UREA NITROGEN 10 mg/dL (7-17); CHLORIDE 105 mmol/L (98-107); Calcium 8.8 mg/dL (8.4-10.2); Carbon Dioxide 24 mmol/L (22-30); Creatinine 1 0.63 mg/dL (0.52-1.04); EST GLOMERULAR FILTRATION RATE > 60.0 ML/MIN; Glucose 108 mg/dL (74-106); LIPASE 45 U/L (23-300); SGOT/AST 38 U/L (14-36); SGPT/ALT 55 U/L (0-35); SODIUM 138 mmol/L (137-145)
[2023-03-06 11:34] VITALS: O2SAT 98
--- NOTE | 2023-03-06 12:03 | XRAY ---
Indication: Left lower quadrant pain. Multiple contiguous axial images obtained through the abdomen and pelvis without contrast. Comparison: None Lung bases demonstrates minimal dependent atelectasis. Heart not enlarged. Noncontrasted stomach and bowel loops nonobstructed with normal appendix. Mild scattered colonic diverticulosis with mild focal diverticulitis distal descending colon. No free fluid/air. Right kidney demonstrates 2-3 cortical cysts, largest 2.5 cm with thin rim of calcification. A few incidental tiny calcified splenic granulomas. Remaining liver, gallbladder, pancreas, spleen, adrenal glands, kidneys, ureters, bladder, uterus, and aorta are unremarkable for noncontrast exam. Osseous structures intact. Impression: 1. Mild colonic diverticulosis with mild focal diverticulitis distal descending colon. No complications. 2. Incidental right renal cysts, largest with rim of calcification.
[2023-03-06] MEDS ORDERED: Levofloxacin 500 MG Tablet PO ONE (12:18)
[2023-03-06] MEDS ORDERED: Flagyl 500 MG PO ONE (12:19)
--- NOTE | 2023-03-06 12:20 | ERPHSYRPT ---
- History of Present Illness Time Seen by Provider: 03/06/23 10:30 Historian: patient Exam Limitations: no limitations Patient Subjective Stated Complaint: PT states "I had a c section in december and had an infection in my c section area. I think that is all done. I went to [facility] three days ago and they said I have a kidney infection and put me on antibiotics but I am having horrible pain in my lower left belly." Triage Nursing Assessment: PT presented alert and oriented X 3, skin pwd. pt ambulates with a limp, hunched over and guarding her left lower quadrant. Pt will have an occasional grunt upon movement. Physician History: Patient is a 37-year-old female presents to our ED with left lower quadrant pain x1 day. Pain described as an ache that is localized. No radiation. Pain worse with palpation. Pain improved with rest. No trauma. No fever. No nausea vomiting or diaphoresis. No change in bowel movements. Patient recently started on Macrobid for urinary tract infection. Today is day 3 of Macrobid. Patient denies fever. Patient states she is otherwise healthy. 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 Significant other at bedside. They voiced no other complaints or concerns at this time. Portions of this note were created with voice recognition technology. There may be grammatical, spelling, punctuation or sound alike errors Timing/Duration: yesterday Activities at Onset: none Quality: aching Abdominal Pain Onset Location: LLQ Pain Radiation: no radiation Severity of Pain-Max: moderate Severity of Pain-Current: mild Modifying Factors: Improves With: nothing Associated Symptoms: denies symptoms Previous symptoms: no prior history Allergies/Adverse Reactions: No Known Drug Allergies Allergy (Verified 12/24/22 05:41) Home Medications: Aspirin 81 gm Chew [Baby Aspirin 81 mg Chew] 81 mg PO DAILY 11/29/21 [History] Sertraline HCl 50 mg [Zoloft 50 mg Tablet] 50 mg PO DAILY 12/24/22 [History] Nitrofurantoin Macro 100 mg [Macrobid 100MG Capsule] 100 mg PO BID 03/06/23 [History] Hx Tetanus, Diphtheria Vaccination/Date Given: Yes Hx Influenza Vaccination/Date Given: No Hx Pneumococcal Vaccination/Date Given: No Immunizations Up to Date: Yes Travel Risk - International Travel Have you traveled outside of the country in past 3 weeks: No - Coronavirus Screening Are you exhibiting any of the following symptoms?: No Close contact with a COVID-19 positive Pt in past 14-21 Days: No - Vaccine Status Have you recieved a Covid-19 vaccination: No - Review of Systems Constitutional: No Symptoms, No Fever, No Chills Eyes: No Symptoms Ears, Nose, & Throat: No Symptoms Respiratory: No Symptoms, No Cough, No Dyspnea Cardiac: No Symptoms, No Chest Pain, No Edema, No Syncope Abdominal/Gastrointestinal: No Symptoms, No Abdominal Pain, No Nausea, No Vomiting, No Diarrhea Genitourinary Symptoms: No Symptoms, No Dysuria Musculoskeletal: No Symptoms, No Back Pain, No Neck Pain Skin: No Symptoms, No Rash Neurological: No Symptoms, No Dizziness, No Focal Weakness, No Sensory Changes Psychological: No Symptoms Endocrine: No Symptoms Hematologic/Lymphatic: No Symptoms Immunological/Allergic: No Symptoms All Other Systems: Reviewed and Negative - Past Medical History Pertinent Past Medical History: Yes Neurological History: No Pertinent History ENT History: No Pertinent History Cardiac History: Hypertension Respiratory History: No Pertinent History Endocrine Medical History: No Pertinent History, Other Musculoskeletal History: No Pertinent History GI Medical History: No Pertinent History History: No Pertinent History Psycho-Social History: Anxiety Female Reproductive Disorders: No Pertinent History Other Medical History: Graves disease. gestational diabetes - Past Surgical History Past Surgical History: Yes Neuro Surgical History: No Pertinent History Cardiac: No Pertinent History Respiratory: No Pertinent History Gastrointestinal: No Pertinent History Genitourinary: No Pertinent History Musculoskeletal: No Pertinent History Female Surgical History: Section Other Surgical History: TONSILLECTOMY. c section and tubal - Social History Smoking Status: Former smoker How long have you smoked: 2013 Exposure to second hand smoke: No Drug Use: none Patient Lives Alone: No - Female History Hx Last Menstrual Period: 02/18/2023 Hx Now: No (tubal) - Nursing Vital Signs Nursing Vital Signs: Initial Vital Signs Temperature 97.5 F 03/06/23 10:16 Pulse Rate 67 03/06/23 10:16 Respiratory Rate 20 03/06/23 10:16 Blood Pressure 123/98 03/06/23 10:16 O2 Sat by Pulse Oximetry 96 03/06/23 10:16 Pain Scale Pain Intensity 0 - Physical Exam General Appearance: no apparent distress, alert Eye Exam: PERRL/EOMI, eyes nml inspection Ears, Nose, Throat Exam: normal ENT inspection, moist mucous membranes Neck Exam: normal inspection, non-tender, full range of motion Respiratory Exam: normal breath sounds, lungs clear, airway intact, No respiratory distress Cardiovascular Exam: regular rate/rhythm, normal heart sounds, normal peripheral pulses Gastrointestinal/Abdomen Exam: soft, other (Tenderness to palpation left lower quadrant), No tenderness, No mass Back Exam: normal inspection, normal range of motion, No CVA tenderness, No vert ebral tenderness Extremity Exam: normal inspection, normal range of motion, pelvis stable Neurologic Exam: alert, oriented x 3, cooperative, normal mood/affect, nml cerebellar function, sensation nml, No motor deficits Skin Exam: normal color, warm, dry Lymphatic Exam: No adenopathy SpO2 Interpretation: normal SpO2: 98 O2 Delivery: Room Air - Course Nursing assessment & vital signs reviewed: Yes - CT Exams Abdomen/Pelvis CT Interpretation: Tele-radiologist Report (Right renal cysts, diverticulitis) Ordered Tests: Active Orders 24 hr Category Date Time Status IV Insertion STAT Care 03/06/23 10:57 Active ABDOMEN AND PELVIS W/0 CONTRAS [CT] Stat Exams 03/06/23 10:57 Completed CBC W DIFF Stat Lab 03/06/23 11:10 Completed CMP Stat Lab 03/06/23 11:10 Completed CULTURE,URINE Stat Lab 03/06/23 11:00 Received HCG QUALITATIVE, URINE Stat Lab 03/06/23 11:00 Completed LIPASE Stat Lab 03/06/23 11:10 Completed TROPONIN Q4H Lab 03/06/23 11:10 Completed TROPONIN Q4H Lab 03/06/23 15:00 Ordered TROPONIN Q4H Lab 03/06/23 19:00 Ordered UA W/RFX UR CULTURE Stat Lab 03/06/23 11:00 Completed Medication Summary Generic Name Dose Route Start Last Admin Trade Name Freq PRN Reason Stop Dose Admin Sodium Chloride 1,000 mls @ 100 mls/hr 03/06/23 11:00 03/06/23 12:18 Sodium Chloride 0.9% 1000 Ml IV 04/05/23 10:59 Not Given .Q10H NERY Discontinued Medications Generic Name Dose Route Start Last Admin Trade Name Freq PRN Reason Stop Dose Admin Levofloxacin 500 mg 03/06/23 12:18 03/06/23 12:25 Levofloxacin 500 Mg Tablet PO 03/06/23 12:19 500 mg STAT ONE Administration Levofloxacin Confirm 03/06/23 12:24 Levofloxacin 500 Mg Tablet Administered 03/06/23 12:25 Dose 500 mg .ROUTE .STK-MED ONE Metronidazole 500 mg 03/06/23 12:19 03/06/23 12:25 Metronidazole 500 Mg Tablet PO 03/06/23 12:20 500 mg STAT ONE Administration Metronidazole Confirm 03/06/23 12:24 Metronidazole 500 Mg Tablet Administered 03/06/23 12:25 Dose 500 mg .ROUTE .[facility] ONE Lab/Rad Data: Laboratory Result Diagrams 03/06/23 11:10 03/06/23 11:10 Laboratory Results 03/06/23 03/06/23 03/06/23 Range/Units 11:10 11:10 11:10 WBC 8.2 (4.0-10.5) x10^3/uL RBC 4.58 (4.1-5.4) x10^6/uL Hgb 12.0 (12.0-16.0) g/dL Hct 37.3 (35-47) % MCV 81.4 (78-100) fL MCH 26.2 (26-32) pg MCHC 32.2 (32-36) g/dL RDW 12.6 (11.5-14.0) % Plt Count 324 (150-450) x10^3/uL MPV 9.6 (7.5-11.0) fL Gran % 67.9 H (36.0-66.0) % Immature Gran % (Auto) 0.2 (0.00-0.4) % Nucleat RBC Rel Count 0.0 (0.00-0.1) % Eos # (Auto) 0.18 (0-0.5) x10^3/uL Immature Gran # (Auto) 0.02 (0.00-0.03) x10^3u/L Absolute Lymphs (auto) 1.74 (1.0-4.6) x10^3/uL Absolute Monos (auto) 0.65 (0.0-1.3) x10^3/uL Absolute Nucleated RBC 0.00 (0.00-0.01) x10^3u/L Lymphocytes % 21.3 L (24.0-44.0) % Monocytes % 8.0 (0.0-12.0) % Eosinophils % 2.2 (0.00-5.0) % Basophils % 0.4 (0.0-0.4) % Absolute Granulocytes 5.54 (1.4-6.9) x10^3/uL Basophils # 0.03 (0-0.4) x10^3/uL Sodium 138 (137-145) mmol/L Potassium 4.0 (3.5-5.1) mmol/L Chloride 105 (98-107) mmol/L Carbon Dioxide 24 (22-30) mmol/L Anion Gap 13.3 (5-15) MEQ/L BUN 10 (7-17) mg/dL Creatinine 0.63 (0.52-1.04) mg/dL Estimated GFR > 60.0 ML/MIN Glucose 108 H (74-106) mg/dL Calcium 8.8 (8.4-10.2) mg/dL Total Bilirubin 0.80 (0.2-1.3) mg/dL AST 38 H (14-36) U/L ALT 55 H (0-35) U/L Alkaline Phosphatase 135 H (38-126) U/L Troponin I < 0.012 (0.000-0.034) ng/mL Serum Total Protein 7.0 (6.3-8.2) g/dL Albumin 4.0 (3.5-5.0) g/dL Lipase 45 (23-300) U/L Urine Color (Yellow) Urine Appearance (Clear) Urine pH (4.6-8.0) Ur Specific [place] (1.005-1.030) Urine Protein (Negative) Urine Glucose (UA) (Negative) mg/dL Urine Ketones (Negative) Urine Blood (Negative) Urine Nitrite (Negative) Urine Bilirubin (Negative) Urine Urobilinogen (0.2) mg/dL Ur Leukocyte Esterase (Negative) U Hyaline Cast (Auto) (0-2) /LPF Urine Microscopic RBC (0-5) /HPF Urine Microscopic WBC (0-5) /HPF Ur Epithelial Cells (None Seen) /HPF Urine Bacteria (None Seen) /HPF Urine Culture Reflexed (NO) Urine HCG, Qual (NEGATIVE) 03/06/23 03/06/23 Range/Units 11:00 11:00 WBC (4.0-10.5) x10^3/uL RBC (4.1-5.4) x10^6/uL Hgb (12.0-16.0) g/dL Hct (35-47) % MCV (78-100) fL MCH (26-32) pg MCHC (32-36) g/dL RDW (11.5-14.0) % Plt Count (150-450) x10^3/uL MPV (7.5-11.0) fL Gran % (36.0-66.0) % Immature Gran % (Auto) (0.00-0.4) % Nucleat RBC Rel Count (0.00-0.1) % Eos # (Auto) (0-0.5) x10^3/uL Immature Gran # (Auto) (0.00-0.03) x10^3u/L Absolute Lymphs (auto) (1.0-4.6) x10^3/uL Absolute Monos (auto) (0.0-1.3) x10^3/uL Absolute Nucleated RBC (0.00-0.01) x10^3u/L Lymphocytes % (24.0-44.0) % Monocytes % (0.0-12.0) % Eosinophils % (0.00-5.0) % Basophils % (0.0-0.4) % Absolute Granulocytes (1.4-6.9) x10^3/uL Basophils # (0-0.4) x10^3/uL Sodium (137-145) mmol/L Potassium (3.5-5.1) mmol/L Chloride (98-107) mmol/L Carbon Dioxide (22-30) mmol/L Anion Gap (5-15) MEQ/L BUN (7-17) mg/dL Creatinine (0.52-1.04) mg/dL Estimated GFR ML/MIN Glucose (74-106) mg/dL Calcium (8.4-10.2) mg/dL Total Bilirubin (0.2-1.3) mg/dL AST (14-36) U/L ALT (0-35) U/L Alkaline Phosphatase (38-126) U/L Troponin I (0.000-0.034) ng/mL Serum Total Protein (6.3-8.2) g/dL Albumin (3.5-5.0) g/dL Lipase (23-300) U/L Urine Color Dark Yellow A (Yellow) Urine Appearance Turbid A (Clear) Urine pH 5.5 (4.6-8.0) Ur Specific [place] 1.025 (1.005-1.030) Urine Protein Trace A (Negative) Urine Glucose (UA) Negative (Negative) mg/dL Urine Ketones Trace A (Negative) Urine Blood Moderate A (Negative) Urine Nitrite Negative (Negative) Urine Bilirubin Small A (Negative) Urine Urobilinogen 1.0 A (0.2) mg/dL Ur Leukocyte Esterase Moderate A (Negative) U Hyaline Cast (Auto) 3-5 A (0-2) /LPF Urine Microscopic RBC 11-20 A (0-5) /HPF Urine Microscopic WBC 51-100 A (0-5) /HPF Ur Epithelial Cells Many A (None Seen) /HPF Urine Bacteria Many A (None Seen) /HPF Urine Culture Reflexed YES (NO) Urine HCG, Qual NEGATIVE (NEGATIVE) - Progress Progress: improved Progress Note: 37-year-old female presents to our ED for evaluation of left lower quadrant pain. Pain started yesterday. No trauma. No fever. Physical exam reveals tenderness to left lower quadrant. Test ordered include CT abdomen pelvis which reveals a small area of diverticulitis. Urinalysis reveals a urinary tract infection. CBC CMP essentially unremarkable. hCG negative. Lipase negative. Troponin negative. Patient currently on Macrobid for urinary tract infection. In light of our findings today we will discontinue patient's Macrobid. Patient to take Cipro Flagyl instead. Patient received her first dose of Cipro and Flagyl in our ED. A prescription for the same was forwarded to patient's pharmacy. Patient understands that she is to return to our ED if symptoms do not improve. Patient declined pain medication. Significant other at bedside. They voiced no other complaints or concerns at this time. Portions of this note were created with voice recognition technology. There may be grammatical, spelling, punctuation or sound alike errors Complexity of problems addressed is moderate. New diagnosis with uncertain prognosis. No critical care time. Patient served as independent historian. No outside documents reviewed. Case not discussed with an outside provider. Complexity of data reviewed and analyzed was moderate. Test ordered. Test reviewed. Urinalysis reveals a urinary tract infection with microscopic hematuria. Urinalysis was reviewed by independently. Risk of complication and or risk morbidity/mortality of patient management is moderate. Patient received oral dose of Cipro and Flagyl. Patient also receiv ed IV normal saline. Patient agrees to follow-up with her primary care doctor within 48 hours for reevaluation. Plan of care established via shared decision- making model. Vital stable. Discharge diagnosis is diverticulitis and urinary tract infection. Portions of this note were created with voice recognition technology. There may be grammatical, spelling, punctuation or sound alike errors Patient advised of the importance of clear liquids for the next several days until the diverticulitis symptoms improve. 03/06/23 12:33 03/06/23 12:38 Counseled pt/family regarding: lab results, diagnosis, need for follow-up, rad results - Departure Departure Disposition: Home Clinical Impression: Diverticulitis, UTI (urinary tract infection) Condition: Stable Critical Care Time: No Referrals: ANSON WEBSTER DO [Primary Care Provider] - Follow up/PCP as directed Prescriptions: Ciprofloxacin [Cipro 500 MG] 500 mg PO BID 7 Days #14 tablet Metronidazole 500 mg [Flagyl 500 MG] 500 mg PO QID #28 tablet
[2023-03-06 12:22] VITALS: BP 104/57; PULSE 85
[2023-03-06] MEDS ORDERED: Levofloxacin 500 MG Tablet ONE (12:24)
[2023-03-06] MEDS ORDERED: Flagyl 500 MG ONE (12:24)
== END 2023-03-06 12:43 | disposition home or self-care (01) ==
LOC: ED 10:13
DX: K57.92 Diverticulitis of intestine, part unspecified, without perforation or abscess without bleeding (principal); N39.0 Urinary tract infection, site not specified; R10.32 Left lower quadrant pain; I10 Essential (primary) hypertension; Z79.899 Other long term (current) drug therapy; Z28.310 Unvaccinated for COVID-19
CPT/HCPCS: 36415; 74176; 80053; 81001; 81025; 83690; 84484; 85025; 87086; 99284; A9270-GY